=== PATIENT | female | born 1960 | race Caucasian/White ===

== ENCOUNTER → 2017-07-27 07:00 | Outpatient (CLI) | payer OTHER, SELFPAY ==
[2017-07-27 08:47] LABS: Alanine Aminotransferase 25 U/L (12-78); Albumin Level 4.9 gm/dL (3.4-5.0); Albumin/Globulin Ratio 1.4 (1.1-1.8); Alkaline Phosphatase 93 U/L (46-116); Anion Gap 14.8 mEq/L (5-15); Aspartate Amino Transferase 24 U/L (15-37); Bilirubin,Total 0.5 mg/dL (0.2-1.0); Blood Urea Nitrogen 21 mg/dL (7-18); Calcium 10.2 mg/dL (8.5-10.1); Carbon Dioxide 26 mmol/L (21.0-32.0); Chloride 105 mmol/L (98-107); Cholesterol 169 mg/dL (140-200); Creatinine,Serum 0.74 mg/dL (0.55-1.02); Estimated Glomerular Filt Rate 81 ml/min (>60); GFR (African American) 98 ML/MIN (>60); Globulin 3.4 gm/dl (1.3-3.2); Glucose 87 mg/dL (74-106); HDL Cholesterol 83 mg/dL (29-89); LDL Cholesterol 72 mg/dL (0-130); Potassium 4.8 mmoL/L (3.5-5.1); Sodium 141 mmol/L (136-145); Total Protein,Serum 8.3 gm/dL (6.4-8.2); Triglycerides 68 mg/dL (30-200); VLDL Cholesterol 14 mg/dL (0-40)
== END ==
PROVIDERS: Visit Provider Physician Assistant Medical
DX: I73.9 Peripheral vascular disease, unspecified (principal)
CPT/HCPCS: 36415; 80053; 80061

== ENCOUNTER → 2017-10-30 09:01 | Outpatient (CLI) | payer BC, SELFPAY ==
--- NOTE | 2017-10-30 09:11 | US_ITS ---
US abdomen limited History:Nausea, vomiting, diarrhea Ordering Physician:Amanda Zarco Patient Age: 57 years Comparison:None Findings: Pancreas:Unremarkable. No obvious mass or abnormal fluid collection. No ductal dilatation Liver:No focal liver lesions demonstrated. Homogeneous echogenicity. No intrahepatic biliary ductal dilatation evident Right Kidney:Unremarkable. Normal size and echogenicity. No hydronephrosis Gallbladder:No gallstones, gallbladder wall thickening, pericholecystic fluid, or biliary dilatation. Impression:Negative gallbladder/right upper quadrant ultrasound
== END ==
PROVIDERS: PCP Nurse Practitioner; Visit Provider Nurse Practitioner
DX: R19.7 Diarrhea, unspecified (principal); R11.2 Nausea with vomiting, unspecified
CPT/HCPCS: 76705

== ENCOUNTER 2018-01-10 09:30 | Outpatient (RCR) | payer BC, SELFPAY | END 2018-01-10 09:31 | disposition home or self-care (01) | LOC: PT 09:30 | PROVIDERS: PCP Nurse Practitioner; Visit Provider Physician Assistant | DX: M75.101 Unspecified rotator cuff tear or rupture of right shoulder, not specified as traumatic (principal) | CPT/HCPCS: 97010; 97014; 97016; 97110; 97140; 97163; G0283 ==

== ENCOUNTER → 2018-04-24 12:43 | Outpatient (POV) | payer BC, SELFPAY | DX: Z00.00 Encounter for general adult medical examination without abnormal findings (principal) ==

== ENCOUNTER 2018-06-05 09:30 | Outpatient (RCR) | payer BC, SELFPAY | END 2018-06-05 09:35 | disposition home or self-care (01) | LOC: PT 09:30 | PROVIDERS: Visit Provider Orthopaedic Surgery Sports Medicine | DX: M75.101 Unspecified rotator cuff tear or rupture of right shoulder, not specified as traumatic (principal) | CPT/HCPCS: 97010; 97014; 97016; 97110; 97163; 97164; G0283 ==

== ENCOUNTER → 2019-02-18 14:21 | Outpatient (POV) | payer BC, SELFPAY | PROVIDERS: Visit Provider Dermatology | DX: Z00.00 Encounter for general adult medical examination without abnormal findings (principal) ==

== ENCOUNTER → 2019-03-11 13:47 | Outpatient (POV) | payer BC, SELFPAY | PROVIDERS: Visit Provider Dermatology | DX: Z00.00 Encounter for general adult medical examination without abnormal findings (principal) ==

== ENCOUNTER → 2019-07-23 15:38 | Outpatient (POV) | payer BC, SELFPAY | DX: Z00.00 Encounter for general adult medical examination without abnormal findings (principal) ==

== ENCOUNTER 2020-01-27 08:00 | Outpatient (RCR) | payer BC, SELFPAY | END 2020-01-27 09:25 | disposition home or self-care (01) | LOC: PT 08:00 | PROVIDERS: Visit Provider Orthopaedic Surgery | DX: Z96.611 Presence of right artificial shoulder joint (principal); M25.511 Pain in right shoulder | CPT/HCPCS: 20560; 97010; 97014; 97016; 97110; 97140; 97163; 97164; G0283 ==

== ENCOUNTER → 2020-03-05 12:37 | Outpatient (CLI) | payer BC, SELFPAY ==
--- NOTE | 2020-03-05 12:37 | MM_ITS ---
PROCEDURE: MM DIG SCREENING MAMM BI W/CAD Digital Breast Tomosynthesis Included CLINICAL INDICATION: Routine Screening Mammogram There is no personal or family history of breast cancer. COMPARISON: MG JON SCREENING from 12/12/2013 MG SCREENING MAMMO DIGITAL W/ CAD from 10/07/2015 MG SCREENING MAMMO DIGITAL W/ CAD from 10/07/2015 TECHNIQUE: Standard CC and MLO images and 3D Tomosynthesis was obtained. R2 CAD reviewed. FINDINGS: The breasts are composed primarily of fat with minimal scattered fibroglandular densities in each breast. There is a biopsy clip deep to the nipple left breast. There is no suspicious lesion in either breast and no suspicious microcalcifications. IMPRESSION: Fatty type breast parenchyma with no suspicious lesions seen BI-RAD Category: 2 Benign Finding(s) FOLLOW-UP: 1YR 1 Year Follow-up (A letter has been sent to the patient regarding results of the study.) Dictated by: Dr. Peterson Hoffman MD 03/11/2020 08:26 Dr. Peterson Hoffman MD in [place] 03/11/2020 08:26
== END ==
PROVIDERS: PCP Nurse Practitioner; Visit Provider Obstetrics & Gynecology
DX: Z12.31 Encounter for screening mammogram for malignant neoplasm of breast (principal)
CPT/HCPCS: 77063; 77067

== ENCOUNTER → 2020-03-16 16:26 | Outpatient (CLI) | payer BC, SELFPAY ==
[2020-03-16 17:05] LABS: Basophils # 0.1 K/mm3 (0-0.2); Basophils % 0.9 % (0.1-2.0); Eosinophils # 0.1 K/mm3 (0.0-0.4); Eosinophils % 0.9 % (0.1-12.0); Hematocrit 45.5 % (37.0-47.0); Hemoglobin 15.8 g/dL (12.2-16.2); Lymphocytes % 19.7 % (10-50); Mean Corpuscular HGB Conc 34.6 g/dL (31.8-35.4); Mean Corpuscular Hemoglobin 32.8 pg (27.0-31.2); Mean Corpuscular Volume 94.7 fl (81-99); Mean Platelet Volume 8.3 fl (7.4-10.4); Monocytes # 0.6 K/mm3 (0.1-1.0); Monocytes % 3.9 % (1.7-9.3); Neutrophils # 11.5 K/mm3 (1.8-7.8); Neutrophils % 74.6 % (37.0-80.0); Platelet Count 343 K/mm3 (142-424); White Blood Count 15.4 K/mm3 (4.8-10.8)
[2020-03-16 17:07] LABS: MANUAL DIFFERENTIAL MANUAL DIFFERENTIAL (MANUAL DIFF)
[2020-03-16 17:22] LABS: Amphetamine/Metha Screen,Urine Negative ng/ml (<1000); Barbiturates Screen,Urine Negative ng/ml (<200)
[2020-03-16 17:23] LABS: Benzodiazepines Screen,Urine Negative ng/ml (<200)
[2020-03-16 17:24] LABS: Cannabinoid Screen,Urine Negative ng/ml (<50); Cocaine Screen,Urine Negative ng/ml (<300)
[2020-03-16 17:25] LABS: Methadone Screen,Urine Negative ng/ml (<300)
[2020-03-16 17:26] LABS: Opiate Screen,Urine Negative ng/ml (<300); Phencyclidine Screen,Urine Negative ng/ml (<25)
[2020-03-16 17:53] LABS: Lymphocytes % 25 % (10-50); Monocytes % 5 % (2-9); Neutrophils % 68 % (42-76); Total Cells Counted 100
[2020-03-16 17:54] LABS: Platelet Estimate Normal; RBC Morphology Normal
[2020-03-16 17:55] LABS: Chloride 102 mmol/L (98-107); Potassium 4.1 mmoL/L (3.5-5.1); Sodium 139 mmol/L (136-145)
[2020-03-16 17:58] LABS: Alanine Aminotransferase 19 U/L (12-78); Albumin Level 5.1 g/dl (3.5-5.0); Albumin/Globulin Ratio 1.6 (1.1-1.8); Alkaline Phosphatase 95 U/L (38-126); Anion Gap 16.1 mEq/L (5-15); Aspartate Amino Transferase 38 U/L (14-36); Bilirubin,Total 0.6 mg/dl (0.2-1.3); Blood Urea Nitrogen 16 mg/dl (7-17); Calcium 10.9 mg/dl (8.4-10.2); Carbon Dioxide 25 mmol/L (22.0-30.0); Estimated Glomerular Filt Rate 86 ml/min (>60); GFR (African American) 104 ML/MIN (>60); Globulin 3.2 g/dL (1.3-3.2); Glucose 79 mg/dl (74-100); Total Protein,Serum 8.3 g/dl (6.3-8.2)
[2020-03-16 18:55] LABS: Coronavirus 19 IgG Antibody Negative (Negative); Coronavirus 19 IgM Antibody Negative (Negative)
[2020-03-16 20:19] LABS: HCG Qualitative, Serum Negative (Negative)
== END ==
PROVIDERS: Visit Provider Obstetrics & Gynecology
DX: Z01.818 Encounter for other preprocedural examination (principal); A63.0 Anogenital (venereal) warts
CPT/HCPCS: 36415; 80053; 80305; 84703; 85007; 85025; 86328

== ENCOUNTER 2020-03-18 05:57 | Day surgery (SDC) | payer BC, SELFPAY ==
[2020-03-15 13:34] VITALS: BMI 23.1
[2020-03-18] VITALS (11 sets, daily range): BP systolic 110–133; BP diastolic 61–80; PULSE 64–94; RESP 13–18; TEMP 35.3–43; O2SAT 92–98
[2020-03-18 06:51] LABS: Microscopic, Urine URINE MICROSCOPIC (MICROSCOPIC)
[2020-03-18 06:53] LABS: Appearance,Urine CLEAR (Clear); Bilirubin,Urine Negative (Negative); Blood, Urine Negative (Negative); Color,Urine YELLOW (Yellow); Glucose,Urine (UA) Negative (Negative); Ketones,Urine Negative (Negative); Leukocyte Esterase,Urine Negative (Negative); Nitrate,Urine Negative (Negative); Protein,Urine Negative (Negative); Urobilinogen,Urine 0.2 EU/dl (0.2)
--- NOTE | 2020-03-18 07:11 | HMH.ANESCL ---
[facility] Anesthesia Checklist - Patient Identification Patient Identification: Arm Band, Verbal (Name & ) - Structural Data Admitted From: Home Planned Operative Procedure/s: CO2 laser genital condyloma Consent for Planned Operative Procedure(s) Verified: Yes Verified Documents: Surgical Consent, History and Physical - NPO Status Verified Time NPO: 19:00 - Chart Verification Results Verified: CBC, BMP - Additional verifications Patient : No Anesthesia Reactions: No - Airway Assessment C-Spine Mobility Assessed: Yes TMJ Mobility Assessed: Yes Dentition: Dentures-good fit (Upper denture, lower partial) - Neurological Assessment Level of Consciousness: Awake, Alert, Appropriate, Follows Commands Hx Seizures: No Numbness or tingling in extremities: No - Anesthesia Plan Anesthesia Risk discussed: Yes Anesthesia Plan: Verified ASA Class: III Anesthesia Type: General [facility] History I have reviewed the patient's past medical history: Yes Medical History: Reports:: Gastroesophageal Reflux Disease(GERD), Hyperlipidemia, Peripheral Artery Disease Denies:: Cancer, Diabetes Mellitus Type 1, Diabetes Mellitus Type 2, Internal Pacemaker, MRSA, Seizures *Have you ever received a pneumonia vaccine?: No *Have you received a flu vaccine this season?: Yes Other Medical History: Reports: Hypothyroidism Anesthesia experience/problems:: None Other Surgeries: Yes: Hysterectomy-Partial. No: Pacemaker Amputation: No Fractures: No - *Social History Last grade of school completed: High school graduate Smoking Status: Current every day smoker Tobacco Type: cigarettes # Packs/Day (cigarettes): 1 Alcohol Intake: never Substance Use Type: denies use *Occupational Status:: employed Housing: house Household Members: none *Travel in the last 8 weeks: None Family Hx:: Hyperlipidemia, Thyroid Disorder
[2020-03-18 07:39] LABS: RBC,Urine Occasional #/hpf (0-3)
--- NOTE | 2020-03-18 09:05 | HMH.ANESI ---
[facility] Anesthesia Record Part I Intake, IV Amount: 800 Estimated blood loss (mL): 5 Urine output (mL): 0 (NM) Blood Products used (#): none Blood Pressure: 117/65 SaO2: 92 Pulse Rate: 85 Respiratory Rate: 13 Temperature: 95.5 F Patient is:: Awake, Drowsy, Nasal O2, Stable Stable to PACU at:: 09:02
--- NOTE | 2020-03-18 10:09 | HMH.OPNOTE ---
Date of procedure: 03/18/20 Pre-op Diagnosis:: genital condyloma Post-op Diagnosis:: same Procedure performed:: C02 laser fulgaration of condyloma Surgeon:: Cece Cole MD [employer] SUPERVISOR:: Ernie Albarran Anesthesia: GETA Estimated blood loss (mL): 5 Operative findings:: extensive genital condyloma on labia minora, labia majora, perineum and roshan-rectal area Operative note:: The patient was taken to the OR and general anesthesia administered without complication. She was prepped and draped in lithotomy position. The genital region was prepped and draped with wet towels. The largest condyloma was excised with a scalpel after subcutaneous injection of lidocaine 2% with epinephrine. Numerous smaller lesions were fulgurated with the CO2 laser. The lesions arising directly from the rectal mucosa were not treated with the laser, and one lesion at the top of the left labia minora was only partially fulgurated because of it's close proximity to the clitoris. At the conclusion of the procedure, topical silvidine cream was applied to all areas of fulguration. She was taken out of lithotomy position, awakened from anesthesia and taken to recovery in stable condition. Condition: stable Disposition: PACU Specimens:: none Complications:: none
--- NOTE | 2020-03-18 11:37 | P.PN_ITS ---
[facility] Anesthesia Record Part II Discharge Time: 09:32 Destination: Surgical Day Care (OP Surgery) PACU nurse assessment reviewed?: Yes Patient Condition:: Good Anesthesia Complications:: None Swallowing reflex intact?: Yes Cyanosis?: No Blood Pressure: 110/80 Pulse Rate: 79 Temperature: 97.5 F Mental Status: Alert & Oriented Pain level:: 0 Nausea and/or vomitting:: None Intake, IV Amount: 0
== END 2020-03-18 10:05 | disposition home or self-care (01) ==
LOC: OR 05:58
PROVIDERS: PCP Nurse Practitioner; Visit Provider Obstetrics & Gynecology
PROC: (CPT 56515; principal; 2020-03-18 07:30)
DX: A63.0 Anogenital (venereal) warts (principal); Z90.710 Acquired absence of both cervix and uterus; Z72.0 Tobacco use; Z79.82 Long term (current) use of aspirin; Z79.899 Other long term (current) drug therapy
CPT/HCPCS: 56515; 81001; 96374; J2405

== ENCOUNTER → 2020-07-06 14:45 | Outpatient (CLI) | payer BC, SELFPAY ==
--- NOTE | 2020-07-06 14:50 | US_ITS ---
PROCEDURE: US ABDOMEN LIMITED CLINICAL INDICATION: LUMP IN ABDOMEN Palpable soft tissue nodule in the left lateral abdominal region. COMPARISON: US [facility] US abdomen limited from 10/30/2017 FINDINGS: There is an oval 4 x 1.3 by 1.7 cm isoechoic mass in the left lateral abdominal region corresponding to the palpable abnormality. This is homogeneous isoechoic and is consistent with a lipoma. IMPRESSION: Palpable abnormality in the left lateral abdominal region is felt to represent a lipoma Dictated by: Rogerio Hicks MD 07/06/2020 17:03 Rogerio Hicks MD in [place] 07/06/2020 17:03
== END ==
PROVIDERS: PCP Nurse Practitioner; Visit Provider Nurse Practitioner
DX: R19.00 Intra-abdominal and pelvic swelling, mass and lump, unspecified site (principal)
CPT/HCPCS: 76705

== ENCOUNTER → 2020-07-21 11:22 | Outpatient (CLI) | payer BC, SELFPAY ==
--- NOTE | 2020-07-21 11:55 | ECG_ITS ---
APPROVED REPORT Exam: Resting ECG HR:63 bpm ECG Measurements Heart Rate 63 AXES GA 144 P 78 QRSd 78 QRS 60 QT 438 T 65 QTc 448 Conclusion Normal sinus rhythm Normal ECG Electronically signed by : Stephen Vuong, 07/22/2020 08:39:20
[2020-07-21 12:16] LABS: Basophils # 0.1 K/mm3 (0-0.2); Eosinophils # 0.2 K/mm3 (0.0-0.4); Eosinophils % 2.2 % (0.1-12.0); Hematocrit 44.3 % (37.0-47.0); Hemoglobin 14.4 g/dL (12.2-16.2); Lymphocytes # 2.9 K/mm3 (0.7-4.5); Lymphocytes % 26.8 % (10-50); Mean Corpuscular HGB Conc 32.4 g/dL (31.8-35.4); Mean Corpuscular Hemoglobin 32.2 pg (27.0-31.2); Mean Corpuscular Volume 99.2 fl (81-99); Mean Platelet Volume 8.1 fl (7.4-10.4); Monocytes # 0.4 K/mm3 (0.1-1.0); Monocytes % 3.7 % (1.7-9.3); Neutrophils % 66.2 % (37.0-80.0); Platelet Count 324 K/mm3 (142-424); Red Blood Count 4.47 M/mm3 (4.20-5.40); Red Cell Distribution Width 13.2 % (11.5-17.5); White Blood Count 10.6 K/mm3 (4.8-10.8)
[2020-07-21 12:30] LABS: Anion Gap 12.1 mEq/L (5-15); Blood Urea Nitrogen 29 mg/dl (7-17); Calcium 10.5 mg/dl (8.4-10.2); Carbon Dioxide 24 mmol/L (22.0-30.0); Chloride 107 mmol/L (98-107); Estimated Glomerular Filt Rate 102 ml/min (>60); GFR (African American) 123 ML/MIN (>60); Glucose 75 mg/dl (74-100); Potassium 5.1 mmoL/L (3.5-5.1); Sodium 138 mmol/L (136-145)
[2020-07-21 13:22] LABS: Coronavirus 19 IgG Antibody Negative (Negative); Coronavirus 19 IgM Antibody Negative (Negative)
== END ==
PROVIDERS: Visit Provider Surgery
DX: Z01.818 Encounter for other preprocedural examination (principal); Z20.822 Contact with and (suspected) exposure to COVID-19; A63.0 Anogenital (venereal) warts
CPT/HCPCS: 36415; 80048; 85025; 86328; 93005

== ENCOUNTER 2020-07-23 09:03 | Day surgery (SDC) | payer BC, SELFPAY ==
[2020-07-21 12:05] VITALS: BMI 23.1
[2020-07-23] VITALS (10 sets, daily range): BP systolic 73–151; BP diastolic 40–74; PULSE 64–97; RESP 16–18; TEMP 36.2–36.8; O2SAT 91–97
--- NOTE | 2020-07-23 10:42 | P.PN_ITS ---
[facility] Anesthesia Checklist - Patient Identification Patient Identification: Arm Band - Structural Data Admitted From: Home Planned Operative Procedure/s: Excision perianal lesions Consent for Planned Operative Procedure(s) Verified: Yes - Additional verifications Anesthesia Reactions: No Hx Blood Transfusions: No Blood Transfusion Reaction: No - Airway Assessment C-Spine Mobility Assessed: Yes TMJ Mobility Assessed: Yes Dentition: Poor Dentition - Neurological Assessment Level of Consciousness: Awake Hx Seizures: No Numbness or tingling in extremities: No - Anesthesia Plan Anesthesia Risk discussed: Yes Anesthesia Plan: Verified ASA Class: II Anesthesia Type: General [facility] History Medical History: Reports:: Gastroesophageal Reflux Disease(GERD), Hyperlipidemia, Peripheral Artery Disease Denies:: Cancer, Diabetes Mellitus Type 1, Diabetes Mellitus Type 2, Internal Pacemaker, MRSA, Seizures *Have you ever received a pneumonia vaccine?: Yes *Have you received a flu vaccine this season?: Yes Other Medical History: Reports: Hypothyroidism. Denies: Blood Transfusion Reaction Anesthesia experience/problems:: None Laterality Cases: Bilateral: Arthroscopy Shoulder Other Surgeries: Yes: Hysterectomy-Partial. No: Pacemaker Amputation: No Fractures: No - *Social History Last grade of school completed: High school graduate Smoking Status: Current every day smoker Tobacco Type: cigarettes # Packs/Day (cigarettes): 1 Alcohol Intake: never Substance Use Type: denies use *Occupational Status:: employed Housing: apartment Household Members: none *Travel in the last 8 weeks: None Family Hx:: Hyperlipidemia, Thyroid Disorder
--- NOTE | 2020-07-23 10:56 | HMH.OPNOTE ---
Date of procedure: 07/23/20 Pre-op Diagnosis:: Perianal/perineal condyloma Post-op Diagnosis:: Same Procedure performed:: Excision of anterior perianal/perineal condyloma Surgeon:: Melchor Boone MD Anesthesia: LMA Estimated blood loss (mL): 5 Operative findings:: Firm lobulated lesion along the anterior perianal margin/perineum Operative note:: After informed consent was obtained the patient was taken to the operating room and placed in the supine position. General anesthesia with laryngeal mask airway was achieved. She was then transferred to a modified lithotomy position. The perianal region was prepped and draped in a sterile fashion. After infiltration local anesthetic an incision was made around the margin of the lesion utilizing electrocautery. Electrocautery was utilized to transect the deeper subcutaneous tissue. The lesion was excised in toto and passed off for pathologic evaluation. Electrocautery was utilized to achieve hemostasis. Skin/mucosal margins not reapproximated secondary to concerns for stricture. Dressings were applied and the patient was transferred recovery in stable condition after removal of her laryngeal mask airway. Condition: stable Disposition: PACU Specimens:: Anterior perianal/perineal condyloma's Complications:: No immediate
--- NOTE | 2020-07-23 11:00 | HMH.ANESI ---
[facility] Anesthesia Record Part I Intake, IV Amount: 200 Estimated blood loss (mL): 10 Urine output (mL): 0 Blood Pressure: 73/40 SaO2: 94 Pulse Rate: 64 Respiratory Rate: 18 Temperature: 97.1 F Patient is:: Drowsy, Stable Stable to PACU at:: 10:58
--- NOTE | 2020-07-23 12:40 | P.PN_ITS ---
[facility] Anesthesia Record Part II Discharge Time: 11:28 Destination: Surgical Day Care (OP Surgery) PACU nurse assessment reviewed?: Yes Patient Condition:: Good Anesthesia Complications:: None Swallowing reflex intact?: Yes Cyanosis?: No Blood Pressure: 111/58 Pulse Rate: 97 Temperature: 97.2 F Mental Status: Alert & Oriented Pain level:: 0 Nausea and/or vomitting:: None Intake, IV Amount: 800
== END 2020-07-23 12:00 | disposition home or self-care (01) ==
LOC: OR 09:06
PROVIDERS: PCP Nurse Practitioner; Visit Provider Surgery
PROC: (CPT 46910; principal; 2020-07-23 10:30)
DX: A63.0 Anogenital (venereal) warts (principal); I73.9 Peripheral vascular disease, unspecified; E78.5 Hyperlipidemia, unspecified; K21.9 Gastro-esophageal reflux disease without esophagitis; E03.9 Hypothyroidism, unspecified; Z87.39 Personal history of other diseases of the musculoskeletal system and connective tissue; Z72.0 Tobacco use; Z90.710 Acquired absence of both cervix and uterus; Z79.82 Long term (current) use of aspirin; Z79.899 Other long term (current) drug therapy
CPT/HCPCS: 46910; 96374; J2405

== ENCOUNTER → 2020-08-24 09:44 | Outpatient (CLI) | payer BC, SELFPAY ==
[2020-08-24 11:06] LABS: Blood Urea Nitrogen 23 mg/dl (7-17); Estimated Glomerular Filt Rate 102 ml/min (>60); GFR (African American) 123 ML/MIN (>60)
== END ==
PROVIDERS: Visit Provider Surgery
DX: Z01.812 Encounter for preprocedural laboratory examination (principal)
CPT/HCPCS: 36415; 82565; 84520

== ENCOUNTER → 2020-09-01 12:33 | Outpatient (CLI) | payer BC, SELFPAY ==
--- NOTE | 2020-09-01 12:34 | CT_ITS ---
PROCEDURE: CT PELVIS W CON CLINICAL INDICATION: Carcinoma Recent squamous cell carcinoma diagnosis 07/23/20 Hx of places being removed Excision of anterior perianal/perineal condyloma COMPARISON: No exams were available for comparison TECHNIQUE: Axial images obtained with sagittal and coronal reformats. All CT scans at the facility use one or more dose reduction, viz: automated exposure control, ma/kV adjustment per patient size (including targeted exams where dose is matched to indication, i.e. head), or iterative reconstruction technique. FINDINGS: There is a mild amount of retained colonic feces. A large cystic mass is present in the left paracentral aspect of the pelvis measuring 7 x 7 x 6.7 cm. No obvious internal septations. This lies along the posterior and left aspect of the urinary bladder causing some compression upon the full bladder. There has been a prior hysterectomy.. This mass is compressing upon the distal ureter and somewhat displacing the sigmoid colon posteriorly. The mass does extend inferiorly to the pelvic floor and is slightly displacing the rectum toward the right. No adenopathy. There is mild thickening of the anal verge. This however is nonspecific and may be due to nondistention. The ischial rectal fossa has an unremarkable appearance. No acute bony anomaly. No blastic lesions or lytic lesions apparent. There is mild diffuse vascular calcification. IMPRESSION: 1. Status post hysterectomy. There is a 7 cm left paracentral cystic pelvic mass as described above. Suggest ultrasound to further evaluate. 2. Minimal thickening of the anal verge possibly due to nondistention. Correlation with physical exam suggested. No adenopathy or obvious rectal mass apparent. Dictated by: Rogerio Hicks MD 09/03/2020 09:48 Rogerio Hicks MD in [place] 09/03/2020 09:48
== END ==
PROVIDERS: PCP Nurse Practitioner; Visit Provider Surgery
DX: C44.92 Squamous cell carcinoma of skin, unspecified (principal)
CPT/HCPCS: 72193; Q9967

== ENCOUNTER → 2020-09-01 14:17 | Outpatient (POV) | payer BC, SELFPAY | DX: Z00.00 Encounter for general adult medical examination without abnormal findings (principal) ==

== ENCOUNTER → 2020-09-08 17:09 | Outpatient (CLI) | payer BC, SELFPAY | PROVIDERS: Visit Provider Surgery | DX: Z20.822 Contact with and (suspected) exposure to COVID-19 (principal) ==

== ENCOUNTER → 2020-09-09 11:28 | Outpatient (CLI) | payer BC, SELFPAY ==
[2020-09-09 13:20] LABS: Coronavirus 19 IgG Antibody Positive (Negative); Coronavirus 19 IgM Antibody Negative (Negative)
== END ==
PROVIDERS: Visit Provider Surgery
DX: Z01.812 Encounter for preprocedural laboratory examination (principal); Z20.822 Contact with and (suspected) exposure to COVID-19; C44.92 Squamous cell carcinoma of skin, unspecified
CPT/HCPCS: 36415; 86328

== ENCOUNTER 2020-09-10 05:54 | Day surgery (SDC) | payer BC, SELFPAY ==
[2020-09-09 15:41] VITALS: BMI 23.9
[2020-09-10] VITALS (9 sets, daily range): BP systolic 113–126; BP diastolic 65–72; PULSE 66–105; RESP 18–22; TEMP 36.1–37.2; O2SAT 90–99
--- NOTE | 2020-09-10 06:56 | HMH.ANESCL ---
[facility] Anesthesia Checklist - Patient Identification Patient Identification: Arm Band - Structural Data Admitted From: Home Planned Operative Procedure/s: Excision perianal lesion Consent for Planned Operative Procedure(s) Verified: Yes - NPO Status Verified Time NPO: 00:00 - Additional verifications Anesthesia Reactions: No Hx Blood Transfusions: No Blood Transfusion Reaction: No - Airway Assessment C-Spine Mobility Assessed: Yes TMJ Mobility Assessed: Yes Dentition: Poor Dentition (few teeth remaining, upper dentures removed) - Neurological Assessment Level of Consciousness: Awake, Alert Hx Seizures: No Numbness or tingling in extremities: No - Anesthesia Plan Anesthesia Risk discussed: Yes Anesthesia Plan: Verified ASA Class: II Anesthesia Type: General [facility] History I have reviewed the patient's past medical history: Yes Medical History: Reports:: Gastroesophageal Reflux Disease(GERD), Hyperlipidemia, Peripheral Artery Disease Denies:: Cancer, Diabetes Mellitus Type 1, Diabetes Mellitus Type 2, Internal Pacemaker, MRSA, Seizures *Have you ever received a pneumonia vaccine?: No *Have you received a flu vaccine this season?: Yes Other Medical History: Reports: Hypothyroidism. Denies: Blood Transfusion Reaction Anesthesia experience/problems:: None Laterality Cases: Bilateral: Arthroscopy Shoulder Other Surgeries: Yes: Hysterectomy-Partial, Other. No: Pacemaker Amputation: No Fractures: No - *Social History Last grade of school completed: High school graduate Smoking Status: Current every day smoker Tobacco Type: cigarettes # Packs/Day (cigarettes): 1 Alcohol Intake: never Substance Use Type: denies use *Occupational Status:: employed Housing: house Household Members: none *Travel in the last 8 weeks: None Family Hx:: Hyperlipidemia, Thyroid Disorder
--- NOTE | 2020-09-10 07:42 | HMH.OPNOTE ---
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 General anesthesia with laryngeal mask airway was achieved. She was transferred to a modified lithotomy position. Her perineal/perianal region was prepped and draped in a sterile fashion. After infiltration with local anesthetic the remaining scar tissue from prior excision site was sharply excised with scalpel. No obvious abnormalities consistent with persistent carcinoma with noted on examination. The specimen was passed off for pathologic evaluation. Electrocautery was utilized to achieve hemostasis. Dressings were applied and the patient was transferred to recovery in stable condition after removal of her laryngeal mask airway. Condition: stable Disposition: PACU Specimens:: Reexcision perineal/perianal squamous cell carcinoma Complications:: No immediate
--- NOTE | 2020-09-10 07:51 | P.PN_ITS ---
[facility] Anesthesia Record Part I Intake, IV Amount: 600 Estimated blood loss (mL): 0 Urine output (mL): 0 Blood Pressure: 126/72 SaO2: 97 Pulse Rate: 102 Respiratory Rate: 22 Temperature: 99 F Patient is:: Awake Stable to PACU at:: 07:59
--- NOTE | 2020-09-13 08:30 | P.PN_ITS ---
[facility] Anesthesia Record Part II Discharge Time: 08:19 Destination: Surgical Day Care (OP Surgery) PACU nurse assessment reviewed?: Yes Patient Condition:: Good Anesthesia Complications:: None Swallowing reflex intact?: Yes Cyanosis?: No Blood Pressure: 122/65 Pulse Rate: 96 Temperature: 97.5 F Mental Status: Alert & Oriented Pain level:: 0 Nausea and/or vomitting:: None Intake, IV Amount: 0
[2020-09-13 08:31] VITALS: BP 122/65; PULSE 96; TEMP 36.4
== END 2020-09-10 08:53 | disposition home or self-care (01) ==
PROVIDERS: PCP Nurse Practitioner; Visit Provider Surgery
PROC: (CPT 11402; principal; 2020-09-10 07:30)
DX: D04.5 Carcinoma in situ of skin of trunk (principal); K21.9 Gastro-esophageal reflux disease without esophagitis; E78.5 Hyperlipidemia, unspecified; I73.9 Peripheral vascular disease, unspecified; E03.9 Hypothyroidism, unspecified; Z72.0 Tobacco use; Z79.82 Long term (current) use of aspirin; Z79.899 Other long term (current) drug therapy
CPT/HCPCS: 11402

== ENCOUNTER → 2020-09-20 13:09 | Outpatient (CLI) | payer BC, SELFPAY ==
--- NOTE | 2020-09-20 13:09 | US_ITS ---
PROCEDURE: US TRANSVAGINAL CLINICAL INDICATION: pelvic mass COMPARISON: CT CT PELVIS W CON from 09/01/2020 FINDINGS: The uterus is surgically absent. LEFT OVARY: 1gli6hjq6.7cm with a volume of 201.6ml. Left adnexal anechoic lesion is noted measuring 6.7 x 7.6 centimeters, likely represents a cyst. Right adnexa is unremarkable. The right ovary is not identified. IMPRESSION: Left ovarian cyst measuring up to 7.6 centimeters. Hysterectomy noted. Dictated by: Zully Tee 09/20/2020 16:09 Zully Tee in [place] 09/20/2020 16:09
== END ==
PROVIDERS: PCP Nurse Practitioner; Visit Provider Surgery
DX: R19.00 Intra-abdominal and pelvic swelling, mass and lump, unspecified site (principal)
CPT/HCPCS: 76830

== ENCOUNTER → 2020-09-24 12:13 | Outpatient (CLI) | payer BC, SELFPAY ==
[2020-09-26 10:42] LABS: CA 19-9 5 U/mL (0-35)
== END ==
PROVIDERS: Visit Provider Obstetrics & Gynecology
DX: N94.89 Other specified conditions associated with female genital organs and menstrual cycle (principal); R19.09 Other intra-abdominal and pelvic swelling, mass and lump
CPT/HCPCS: 36415; 86316

== ENCOUNTER → 2020-10-13 16:44 | Outpatient (CLI) | payer BC, SELFPAY ==
[2020-10-15 08:15] LABS: CEA 3.3 ng/mL (0.0-4.7); Cancer Antigen (CA) 125 18.6 U/mL (0.0-38.1)
== END ==
PROVIDERS: Visit Provider Obstetrics & Gynecology
DX: N94.89 Other specified conditions associated with female genital organs and menstrual cycle (principal)
CPT/HCPCS: 82378; 86316

== ENCOUNTER → 2021-03-07 15:44 | Outpatient (CLI) | payer BC, SELFPAY ==
--- NOTE | 2021-03-07 15:45 | MM_ITS ---
PROCEDURE: MM DIG SCREENING MAMM BI W/CAD Digital Breast Tomosynthesis Included CLINICAL INDICATION: screening There is no personal or family history of breast cancer. COMPARISON: MG SCREENING MAMMO DIGITAL W/ CAD from 10/07/2015 MG SCREENING MAMMO DIGITAL W/ CAD from 10/07/2015 MG MM DIG SCREENING MAMM BI W/CAD from 03/05/2020 TECHNIQUE: Standard CC and MLO images and 3D Tomosynthesis was obtained. R2 CAD reviewed. FINDINGS: Scattered fibroglandular densities are seen throughout both breasts. There is a biopsy clip just deep to the nipple left breast. There is a tiny benign-appearing nodular density upper-outer quadrant left breast. There is no suspicious lesion in either breast and no suspicious microcalcifications. IMPRESSION: Fibrofatty parenchyma with no suspicious lesions seen BI-RAD Category: 2 Benign Finding(s) FOLLOW-UP: 1YR 1 Year Follow-up (A letter has been sent to the patient regarding results of the study.) Dictated by: Dr. Peterson Hoffman MD 03/11/2021 10:23 Dr. Peterson Hoffman MD in [place] 03/11/2021 10:23
== END ==
PROVIDERS: PCP Nurse Practitioner Family; Visit Provider Obstetrics & Gynecology
DX: Z12.31 Encounter for screening mammogram for malignant neoplasm of breast (principal)
CPT/HCPCS: 77063; 77067

== ENCOUNTER → 2021-04-26 16:46 | Outpatient (CLI) | payer BC, SELFPAY | PROVIDERS: Visit Provider Surgery | DX: Z01.812 Encounter for preprocedural laboratory examination (principal); Z11.52 Encounter for screening for COVID-19; Z12.11 Encounter for screening for malignant neoplasm of colon | CPT/HCPCS: C9803; U0003; U0005 ==

== ENCOUNTER 2021-04-28 10:10 | Day surgery (SDC) | payer BC, SELFPAY ==
[2021-04-26 11:22] VITALS: BMI 20.1
[2021-04-28 10:23] VITALS: BP 124/80; PULSE 68; RESP 18; TEMP 37; O2SAT 99
[2021-04-28 10:37] VITALS: O2SAT 99
[2021-04-28 11:15] VITALS: BP 106/64; PULSE 67; RESP 14; TEMP 36.4; O2SAT 97
--- NOTE | 2021-04-28 11:15 | P.PCN_ITS ---
- Procedure: Date: 04/28/21 Patient Date of :: 1960 Procedure Performed:: Colonoscopy Indications:: Screening History of perianal squamous cell carcinoma Performing Provider:: Melchor Boone MD Referring Provider:: . Sedation:: Monitored anesthesia care Procedure:: After informed consent was obtained the patient was taken to the endoscopy suit e. Sedation ensued after the patient was transferred to the left lateral decubitus position. Pulse, blood pressure, and oxygen saturation were monitored throughout the procedure. Digital rectal exam revealed no significant abnormality. The colonoscope was placed in position. The entire colon was evaluated. The colonoscope was carefully removed and the patient was transferred to recovery in stable condition. Please see findings and specimens below for detail. Findings:: Bowel preparation fair to moderate Scattered diverticulosis Profound tortuosity limiting visualization Specimens:: None Recommendations:: Barium enema ordered secondary to profound tortuosity. Follow-up colonoscopy pending results of barium enema but likely be around 2-3 years secondary to limitations in visualization. If no abnormality is noted on barium enema and on repeat colonoscopy, timing of future colonoscopies will likely be extended. Complications:: No immediate Estimated blood obtained (mL): 0 Comment:: The patient was last seen in September 2020 in follow-up status post excision of perianal squamous cell carcinoma. 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 The patient was scheduled for follow-up with regard to these findings; however, she did not maintain her appointment.
[2021-04-28 11:25] VITALS: BP 102/60; PULSE 73; RESP 18; O2SAT 98
[2021-04-28 11:35] VITALS: BP 119/66; PULSE 65; RESP 16; O2SAT 99
[2021-04-28 11:42] VITALS: BP 111/76; PULSE 70; RESP 16; O2SAT 98
--- NOTE | 2021-04-28 11:58 | HMH.ANESCL ---
[facility] Anesthesia Checklist - Structural Data Admitted From: Home Planned Operative Procedure/s: colonoscopy Consent for Planned Operative Procedure(s) Verified: Yes - Additional verifications Anesthesia Reactions: No Hx Blood Transfusions: No Blood Transfusion Reaction: No - Airway Assessment C-Spine Mobility Assessed: Yes TMJ Mobility Assessed: Yes Dentition: Dentures-good fit - Neurological Assessment Level of Consciousness: Awake, Alert, Appropriate - Anesthesia Plan Anesthesia Risk discussed: Yes Anesthesia Plan: Verified ASA Class: II Anesthesia Type: MAC [facility] History I have reviewed the patient's past medical history: Yes Medical History: Reports:: Gastroesophageal Reflux Disease(GERD), Hyperlipidemia, Hypertension, Peripheral Artery Disease Denies:: Cancer, Diabetes Mellitus Type 1, Diabetes Mellitus Type 2, Internal Pacemaker, MRSA, Seizures *Have you ever received a pneumonia vaccine?: No *Have you received a flu vaccine this season?: No Other Medical History: Reports: Hypothyroidism. Denies: Blood Transfusion Reaction Anesthesia experience/problems:: none Laterality Cases: Bilateral: Arthroscopy Shoulder Other Surgeries: Yes: Colonoscopy, Coronary Stent (bilateral calf), Hysterectomy-Partial, Skin Cancer Excision, Other. No: Pacemaker Amputation: No Fractures: No - *Social History Smoking Status: Current every day smoker Tobacco Type: cigarettes # Packs/Day (cigarettes): 1 Alcohol Intake: never Substance Use Type: denies use *Occupational Status:: employed Housing: house Household Members: none *Travel in the last 8 weeks: None Family Hx:: Hyperlipidemia, Thyroid Disorder
--- NOTE | 2021-04-28 12:18 | SUR.PHASEII ---
1125 - Spoke w/ radiology, made aware of barium enema. 1130 - Recieved call from RT Prabhu that barium not available in house. Dr. Boone made aware. Rad to contact patient to schedule barium enema outpatient when supplies available. Contact info given to RT Prabhu. Pt given DC education and made aware that RAD would be contacting her to schedule barium enema.
== END 2021-04-28 11:42 | disposition home or self-care (01) ==
LOC: OUTP 10:11
PROVIDERS: PCP Nurse Practitioner Family; Visit Provider Surgery
PROC: 0DJD8ZZ Inspection of Lower Intestinal Tract, Via Natural or Artificial Opening Endoscopic (ICD-10-PCS; CPT 45378; principal; 2021-04-28 11:30)
DX: Z12.11 Encounter for screening for malignant neoplasm of colon (principal); Z85.048 Personal history of other malignant neoplasm of rectum, rectosigmoid junction, and anus; K57.32 Diverticulitis of large intestine without perforation or abscess without bleeding; K56.2 Volvulus
CPT/HCPCS: 45378

== ENCOUNTER → 2021-04-29 12:40 | Outpatient (CLI) | payer BC, SELFPAY ==
--- NOTE | 2021-04-29 13:01 | FL_ITS ---
PROCEDURE: FL BARIUM ENEMA CLINICAL INDICATION: unable to do colonoscopy COMPARISON: No exams were available for comparison FINDINGS: Fluoroscopy time: 4 minutes and 43 seconds. Partner [employer] Intern exam shows bilateral iliac artery stents. Vascular calcification noted. The colon is visualized from rectum to cecum. No annular constricting lesions or polypoid filling defects are apparent. There is diverticulosis of the sigmoid colon. There was some mild spasm within the sigmoid colon which resolved. IMPRESSION: Colonic diverticulosis otherwise negative Dictated by: Rogerio Hicks MD 04/29/2021 15:17 Rogerio Hicks MD in [place] 04/29/2021 15:17
== END ==
PROVIDERS: PCP Nurse Practitioner Family; Visit Provider Surgery
DX: D64.9 Anemia, unspecified (principal)
CPT/HCPCS: 74270

== ENCOUNTER → 2021-06-07 16:53 | Outpatient (CLI) | payer BC, SELFPAY ==
--- NOTE | 2021-06-07 17:11 | ECG_ITS ---
APPROVED REPORT Exam: Resting ECG HR:69 bpm ECG Measurements Heart Rate 69 AXES AR 144 P 83 QRSd 83 QRS 63 QT 395 T 76 QTc 413 Conclusion SINUS RHYTHM Atrial abnormality BORDERLINE ECG UNCONFIRMED REPORT Electronically signed by : Stephen Vuong MD 06/13/2021 17:36:54
[2021-06-07 17:45] LABS: Anion Gap 12.2 mEq/L (5-15); Blood Urea Nitrogen 22 mg/dl (7-17); Calcium 10.5 mg/dl (8.4-10.2); Carbon Dioxide 25 mmol/L (22.0-30.0); Chloride 104 mmol/L (98-107); Estimated Glomerular Filt Rate 85 ml/min (>60); GFR (African American) 103 ML/MIN (>60); Glucose 80 mg/dl (74-100); Potassium 4.2 mmoL/L (3.5-5.1); Sodium 137 mmol/L (136-145)
[2021-06-07 17:50] LABS: Basophils # 0.3 K/mm3 (0-0.2); Basophils % 3.7 % (0.1-2.0); Eosinophils # 0.2 K/mm3 (0.0-0.4); Eosinophils % 2.5 % (0.1-12.0); Hematocrit 43.9 % (37.0-47.0); Hemoglobin 14.3 g/dL (12.2-16.2); Lymphocytes # 2.7 K/mm3 (0.7-4.5); Lymphocytes % 28.9 % (10-50); Mean Corpuscular HGB Conc 32.7 g/dL (31.8-35.4); Mean Corpuscular Hemoglobin 32.6 pg (27.0-31.2); Mean Corpuscular Volume 99.7 fl (81-99); Mean Platelet Volume 9.5 fl (7.4-10.4); Monocytes # 0.4 K/mm3 (0.1-1.0); Monocytes % 4.7 % (1.7-9.3); Neutrophils # 5.6 K/mm3 (1.8-7.8); Neutrophils % 60.3 % (37.0-80.0); Platelet Count 322 K/mm3 (142-424); Red Cell Distribution Width 13.1 % (11.5-17.5); White Blood Count 9.3 K/mm3 (4.8-10.8)
== END ==
PROVIDERS: Visit Provider Surgery
DX: Z01.812 Encounter for preprocedural laboratory examination (principal); Z11.52 Encounter for screening for COVID-19; C44.92 Squamous cell carcinoma of skin, unspecified
CPT/HCPCS: 36415; 80048; 85025; 93005; C9803; U0003; U0005

== ENCOUNTER 2021-06-09 05:54 | Day surgery (SDC) | payer BC, SELFPAY ==
[2021-06-09] VITALS (11 sets, daily range): BP systolic 101–123; BP diastolic 53–65; PULSE 71–681; RESP 14–18; TEMP 36.2–36.9; O2SAT 94–99; BMI 21.0
--- NOTE | 2021-06-09 06:50 | P.PN_ITS ---
[facility] Anesthesia Checklist - Structural Data Admitted From: Home Planned Operative Procedure/s: perirectal abcess Consent for Planned Operative Procedure(s) Verified: Yes - Additional verifications Anesthesia Reactions: No Hx Blood Transfusions: No Blood Transfusion Reaction: No - Airway Assessment C-Spine Mobility Assessed: Yes TMJ Mobility Assessed: Yes Dentition: Edentulous - Neurological Assessment Level of Consciousness: Awake, Alert, Appropriate - Anesthesia Plan Anesthesia Risk discussed: Yes ASA Class: II Anesthesia Type: General [facility] History I have reviewed the patient's past medical history: Yes Medical History: Reports:: Gastroesophageal Reflux Disease(GERD), Hyperlipidemia, Hypertension, Peripheral Artery Disease Denies:: Cancer, Diabetes Mellitus Type 1, Diabetes Mellitus Type 2, Internal Pacemaker, MRSA, Seizures *Have you ever received a pneumonia vaccine?: No *Have you received a flu vaccine this season?: Yes Other Medical History: Reports: Hypothyroidism. Denies: Blood Transfusion Reaction Anesthesia experience/problems:: none Laterality Cases: Bilateral: Arthroscopy Shoulder Other Surgeries: Yes: Colonoscopy, Coronary Stent (bilateral calf), Hysterectomy-Partial, Skin Cancer Excision, Other. No: Pacemaker Amputation: No Fractures: No - *Social History Last grade of school completed: High school graduate Smoking Status: Current every day smoker Tobacco Type: cigarettes # Packs/Day (cigarettes): 1 Alcohol Intake: never Substance Use Type: denies use *Occupational Status:: employed Housing: house Household Members: none *Travel in the last 8 weeks: None Family Hx:: Hyperlipidemia, Thyroid Disorder
--- NOTE | 2021-06-09 07:42 | P.OP_ITS ---
Date of procedure: 06/09/21 Pre-op Diagnosis:: Perianal/perineal condyloma and squamous cell carcinoma Post-op Diagnosis:: Same Procedure performed:: Anal/perianal examination under anesthesia Biopsy of perianal/perineal squamous cell carcinoma prior excision margin Surgeon:: Melchor Boone MD [employer] MACHINE OPERATOR:: Leon Oswald Anesthesia: LMA Estimated blood loss (mL): 5 Clinical Note:: This is a 61-year-old female status post prior excision of perianal/perineal squamous cell carcinoma. Squamous cell carcinoma in situ at the margin was noted at prior excision site. Operative findings:: Prior scar noted. No definitive focus of carcinoma. No additional condylomatous changes. Operative note:: After informed consent was obtained the patient was taken to the operating room and placed in the supine position. General anesthesia with laryngeal mask airway was achieved. She was transferred to a modified lithotomy position. Digital rectal exam revealed no significant abnormality. Inspection of the perianal region and anal canal revealed no significant abnormality (no sign of recurrent condyloma or definitive carcinoma). Some discoloration along both medial buttock/perianal regions was noted. A biopsy of the right and left medial buttock/perianal region was completed after infiltration local anesthetic. The scar (status post prior excision) along the peroneal ridge was also noted. The right lateral and left lateral margins of the scar were excised separately (excisional biopsy) for pathologic evaluation. Electrocautery was utilized to achieve hemostasis of all 4 biopsy/excision sites. Dressings were placed and the patient was transferred to recovery in stable condition. Condition: stable Disposition: PACU Specimens:: Right medial buttock/perianal biopsy Left medial buttock/perianal biopsy Right lateral perineal scar biopsy Left lateral perineal scar biopsy Complications:: No immediate
--- NOTE | 2021-06-09 07:54 | P.PN_ITS ---
[facility] Anesthesia Record Part I Intake, IV Amount: 400 Estimated blood loss (mL): 5 Urine output (mL): 0 Blood Pressure: 101/54 SaO2: 96 Pulse Rate: 76 Respiratory Rate: 16 Temperature: 98.4 F Patient is:: Drowsy, Stable Stable to PACU at:: 07:50
--- NOTE | 2021-06-09 11:54 | HMH.ANESII ---
[facility] Anesthesia Record Part II Discharge Time: 08:20 Destination: Surgical Day Care (OP Surgery) PACU nurse assessment reviewed?: Yes Patient Condition:: Good Anesthesia Complications:: None Swallowing reflex intact?: Yes Cyanosis?: No Blood Pressure: 118/63 Pulse Rate: 71 Temperature: 97.8 F Mental Status: Alert & Oriented Pain level:: 0 Nausea and/or vomitting:: None Intake, IV Amount: 0
== END 2021-06-09 08:58 | disposition home or self-care (01) ==
LOC: OR 05:55
PROVIDERS: PCP Nurse Practitioner Family; Visit Provider Surgery
PROC: (CPT 11106; principal; 2021-06-09 07:30)
DX: C44.520 Squamous cell carcinoma of anal skin (principal); A63.0 Anogenital (venereal) warts; K21.9 Gastro-esophageal reflux disease without esophagitis; E78.5 Hyperlipidemia, unspecified; I10 Essential (primary) hypertension; I73.9 Peripheral vascular disease, unspecified; E03.9 Hypothyroidism, unspecified; Z95.5 Presence of coronary angioplasty implant and graft; Z72.0 Tobacco use; Z85.828 Personal history of other malignant neoplasm of skin; Z83.438 Family history of other disorder of lipoprotein metabolism and other lipidemia; Z83.49 Family history of other endocrine, nutritional and metabolic diseases
CPT/HCPCS: 11106; 11107 ×3; J2405

== ENCOUNTER → 2021-08-16 16:47 | Outpatient (CLI) | payer BC, SELFPAY | PROVIDERS: PCP Nurse Practitioner Family; Visit Provider Surgery | DX: Z01.812 Encounter for preprocedural laboratory examination (principal); Z11.52 Encounter for screening for COVID-19; C44.92 Squamous cell carcinoma of skin, unspecified | CPT/HCPCS: C9803; U0003; U0005 ==

== ENCOUNTER 2021-08-18 07:33 | Day surgery (SDC) | payer BC, SELFPAY ==
[2021-08-17 11:09] VITALS: BMI 20.1
[2021-08-18 07:49] VITALS: BP 110/75; PULSE 68; RESP 16; TEMP 36.8; O2SAT 98
[2021-08-18 08:03] LABS: Basophils # 0.2 K/mm3 (0-0.2); Basophils % 1.7 % (0.1-2.0); Eosinophils # 0.5 K/mm3 (0.0-0.4); Eosinophils % 5.2 % (0.1-12.0); Hemoglobin 14.8 g/dL (12.2-16.2); Lymphocytes # 1.7 K/mm3 (0.7-4.5); Mean Corpuscular HGB Conc 33.7 g/dL (31.8-35.4); Mean Corpuscular Hemoglobin 33.4 pg (27.0-31.2); Mean Corpuscular Volume 99.1 fl (81-99); Mean Platelet Volume 8.4 fl (7.4-10.4); Monocytes # 0.4 K/mm3 (0.1-1.0); Monocytes % 4.6 % (1.7-9.3); Neutrophils # 6.7 K/mm3 (1.8-7.8); Neutrophils % 70.5 % (37.0-80.0); Platelet Count 290 K/mm3 (142-424); Red Blood Count 4.44 M/mm3 (4.20-5.40); Red Cell Distribution Width 13.4 % (11.5-17.5); White Blood Count 9.6 K/mm3 (4.8-10.8)
--- NOTE | 2021-08-18 08:13 | P.PN_ITS ---
[facility] Anesthesia Checklist - Patient Identification Patient Identification: Arm Band - Structural Data Admitted From: Home Planned Operative Procedure/s: Excision perineal lesion Consent for Planned Operative Procedure(s) Verified: Yes - NPO Status Verified Time NPO: 00:00 - Additional verifications Anesthesia Reactions: No Hx Blood Transfusions: No Blood Transfusion Reaction: No - Airway Assessment C-Spine Mobility Assessed: Yes TMJ Mobility Assessed: Yes Dentition: Good Dentition - Neurological Assessment Level of Consciousness: Awake Hx Seizures: No Numbness or tingling in extremities: No - Anesthesia Plan Anesthesia Risk discussed: Yes Anesthesia Plan: Verified ASA Class: II Anesthesia Type: MAC [facility] History I have reviewed the patient's past medical history: Yes Medical History: Reports:: Gastroesophageal Reflux Disease(GERD), Hyperlipidemia, Hypertension, Peripheral Artery Disease Denies:: Cancer, Diabetes Mellitus Type 1, Diabetes Mellitus Type 2, Internal Pacemaker, MRSA, Seizures *Have you ever received a pneumonia vaccine?: No *Have you received a flu vaccine this season?: Yes Other Medical History: Reports: Hypothyroidism. Denies: Blood Transfusion Reaction Anesthesia experience/problems:: None Laterality Cases: Bilateral: Arthroscopy Shoulder Other Surgeries: Yes: Colonoscopy, Coronary Stent (bilateral calf), Hysterectomy-Partial, Skin Cancer Excision, Other. No: Pacemaker Amputation: No Fractures: No - *Social History Last grade of school completed: High school graduate Smoking Status: Current every day smoker Tobacco Type: cigarettes # Packs/Day (cigarettes): 1 Alcohol Intake: never Substance Use Type: denies use *Occupational Status:: employed Housing: house Household Members: none *Travel in the last 8 weeks: None Family Hx:: Hyperlipidemia, Thyroid Disorder
[2021-08-18 08:26] LABS: Chloride 110 mmol/L (98-107)
[2021-08-18 08:27] LABS: Potassium 4.2 mmoL/L (3.5-5.1); Sodium 140 mmol/L (136-145)
[2021-08-18 08:29] LABS: Alanine Aminotransferase 21 U/L (12-78); Alkaline Phosphatase 85 U/L (38-126); Anion Gap 10.2 mEq/L (5-15); Aspartate Amino Transferase 39 U/L (14-36); Bilirubin,Total 0.8 mg/dl (0.2-1.3); Blood Urea Nitrogen 28 mg/dl (7-17); Carbon Dioxide 24 mmol/L (22.0-30.0); Creatinine Clearance Estimated 47 mL/min (50-200); Estimated Glomerular Filt Rate 85 ml/min (>60); GFR (African American) 103 ML/MIN (>60)
[2021-08-18 08:30] LABS: Albumin Level 4.2 g/dl (3.5-5.0); Albumin/Globulin Ratio 1.5 (1.1-1.8); Calcium 9.6 mg/dl (8.4-10.2); Globulin 2.8 g/dL (1.3-3.2); Glucose 66 mg/dl (74-100)
--- NOTE | 2021-08-18 09:54 | HMH.OPNOTE ---
Date of procedure: 08/18/21 Pre-op Diagnosis:: Perineal/perianal squamous cell carcinoma Post-op Diagnosis:: Same Procedure performed:: Excision of perineal/perianal squamous cell carcinoma Surgeon:: Melchor Boone MD Anesthesia: LMA Estimated blood loss (mL): 5 Operative findings:: Central region from prior excision reexcised Operative note:: After informed consent was obtained the patient was taken to the operating room and placed in the supine position. General anesthesia with laryngeal mask airway was achieved. She was then transferred to a modified lithotomy position. Her perianal/perineal region was prepped and draped in a sterile fashion. After infiltration local anesthetic an elliptical incision around the central scar (prior excision site) was made with scalpel. The subcutaneous tissue was dissected and the specimen was excised in toto and passed off for pathologic evaluation. Electrocautery was utilized to achieve hemostasis. The central portion of the wound was reapproximated with interrupted Vicryl. Dressings were applied and the patient was transferred to recovery in stable condition after removal of her laryngeal mask airway. Condition: stable Disposition: PACU Specimens:: Perineal/perianal squamous cell carcinoma Complications:: No immediate
[2021-08-18 09:56] VITALS: BP 94/45; PULSE 67; RESP 18; TEMP 36.3; O2SAT 96
[2021-08-18 10:06] VITALS: BP 104/66; PULSE 65; RESP 18; O2SAT 99
[2021-08-18 10:16] VITALS: BP 119/64; PULSE 61; RESP 18; O2SAT 96
[2021-08-18 10:26] VITALS: BP 115/60; PULSE 69; RESP 18; O2SAT 97
[2021-08-18 10:35] VITALS: BP 113/66; PULSE 68; RESP 18; TEMP 36.4; O2SAT 97
== END 2021-08-18 10:35 | disposition home or self-care (01) ==
LOC: OR 07:34
PROVIDERS: PCP Nurse Practitioner Family; Visit Provider Surgery
PROC: (CPT 11422; principal; 2021-08-18 09:15)
DX: D04.5 Carcinoma in situ of skin of trunk (principal); K21.9 Gastro-esophageal reflux disease without esophagitis; E78.5 Hyperlipidemia, unspecified; I10 Essential (primary) hypertension; I73.9 Peripheral vascular disease, unspecified; E03.9 Hypothyroidism, unspecified; Z72.0 Tobacco use; Z83.438 Family history of other disorder of lipoprotein metabolism and other lipidemia; Z83.49 Family history of other endocrine, nutritional and metabolic diseases; Z79.82 Long term (current) use of aspirin; Z79.899 Other long term (current) drug therapy
CPT/HCPCS: 11422; 80053; 85025; 96374; J2405

== ENCOUNTER → 2021-09-16 12:23 | Outpatient (CLI) | payer BC, SELFPAY | PROVIDERS: PCP Nurse Practitioner Family; Visit Provider Surgery Surgical Oncology | DX: Z01.812 Encounter for preprocedural laboratory examination (principal); Z11.52 Encounter for screening for COVID-19 | CPT/HCPCS: C9803; U0003; U0005 ==

== ENCOUNTER → 2021-10-04 16:43 | Outpatient (CLI) | payer BC, SELFPAY | PROVIDERS: PCP Nurse Practitioner Family; Visit Provider Surgery | DX: Z01.812 Encounter for preprocedural laboratory examination (principal); Z20.822 Contact with and (suspected) exposure to COVID-19; C44.92 Squamous cell carcinoma of skin, unspecified | CPT/HCPCS: C9803; U0003; U0005 ==

== ENCOUNTER 2021-10-06 08:02 | Day surgery (SDC) | payer BC, SELFPAY ==
[2021-10-05 11:23] VITALS: BMI 19.2
[2021-10-06 08:17] VITALS: BP 128/62; PULSE 72; RESP 18; TEMP 36.8; O2SAT 98
--- NOTE | 2021-10-06 08:45 | HMH.ANESCL ---
[facility] Anesthesia Checklist - Structural Data Admitted From: Home Planned Operative Procedure/s: perineal bx Consent for Planned Operative Procedure(s) Verified: Yes - Additional verifications Anesthesia Reactions: No Hx Blood Transfusions: No Blood Transfusion Reaction: No - Airway Assessment C-Spine Mobility Assessed: Yes TMJ Mobility Assessed: Yes Dentition: Edentulous - Neurological Assessment Level of Consciousness: Awake, Alert, Appropriate - Anesthesia Plan Anesthesia Risk discussed: Yes Anesthesia Plan: Verified ASA Class: II Anesthesia Type: General [facility] History I have reviewed the patient's past medical history: Yes Medical History: Reports:: Gastroesophageal Reflux Disease(GERD), Hyperlipidemia, Hypertension, Peripheral Artery Disease Denies:: Cancer, Diabetes Mellitus Type 1, Diabetes Mellitus Type 2, Internal Pacemaker, MRSA, Seizures *Have you ever received a pneumonia vaccine?: No *Have you received a flu vaccine this season?: Yes Other Medical History: Reports: Hypothyroidism. Denies: Blood Transfusion Reaction Anesthesia experience/problems:: none Laterality Cases: Bilateral: Arthroscopy Shoulder Other Surgeries: Yes: Colonoscopy, Coronary Stent (bilateral calf), Hysterectomy-Partial, Skin Cancer Excision, Other. No: Pacemaker Amputation: No Fractures: No - *Social History Last grade of school completed: High school graduate Smoking Status: Current every day smoker Tobacco Type: cigarettes # Packs/Day (cigarettes): 1 Alcohol Intake: never Substance Use Type: denies use *Occupational Status:: employed Housing: house Household Members: none *Travel in the last 8 weeks: None Family Hx:: Heart Attack
--- NOTE | 2021-10-06 10:06 | HMH.OPNOTE ---
Date of procedure: 10/06/21 Pre-op Diagnosis:: Perianal/perineal squamous cell carcinoma Post-op Diagnosis:: Same Procedure performed:: Reexcision perianal/perineal squamous cell carcinoma Surgeon:: Melchor Boone MD Anesthesia: LMA Estimated blood loss (mL): 5 Operative findings:: Well-healed scar tissue from prior excisions Operative note:: After informed consent was obtained the patient was taken to the operating room and placed in the supine position. General anesthesia with laryngeal mask airway was achieved. She was transferred to modified lithotomy position. Her perianal/perineal region was prepped and draped in a sterile fashion. After infiltration local anesthetic the right lateral margin of the prior excision was carefully elevated and transected sharply with scalpel. The left lateral margin was excised in a similar manner. Electrocautery was utilized to achieve hemostasis. Each reexcision was passed off for pathologic evaluation. Dressings were applied and the patient was transferred recovery in stable condition. Condition: stable Disposition: PACU Specimens:: Perianal/perineal squamous cell carcinoma?reexcision right lateral margin Perianal/perineal squamous cell carcinoma?reexcision left lateral margin Complications:: No immediate
[2021-10-06 10:13] VITALS: BP 94/54; PULSE 77; RESP 18; TEMP 36.2; O2SAT 92
[2021-10-06 10:23] VITALS: BP 113/57; PULSE 62; RESP 16; O2SAT 91
[2021-10-06 10:33] VITALS: BP 101/64; PULSE 78; RESP 16; O2SAT 91
[2021-10-06 10:43] VITALS: BP 95/60; PULSE 80; RESP 16; O2SAT 95
[2021-10-06 10:50] VITALS: BP 105/59; PULSE 73; RESP 18; TEMP 36.2; O2SAT 93
== END 2021-10-06 10:50 | disposition home or self-care (01) ==
LOC: OR 08:04
PROVIDERS: PCP Nurse Practitioner Family; Visit Provider Surgery
PROC: (CPT 11600; principal; 2021-10-06 11:15)
DX: C44.92 Squamous cell carcinoma of skin, unspecified (principal); E78.5 Hyperlipidemia, unspecified; I10 Essential (primary) hypertension; I73.9 Peripheral vascular disease, unspecified; K21.9 Gastro-esophageal reflux disease without esophagitis; E03.9 Hypothyroidism, unspecified; Z72.0 Tobacco use; Z82.3 Family history of stroke; Z79.82 Long term (current) use of aspirin; Z79.899 Other long term (current) drug therapy
CPT/HCPCS: 11600 ×2; 96374; J2405

== ENCOUNTER → 2021-11-17 10:39 | Outpatient (CLI) | payer BC, SELFPAY ==
--- NOTE | 2021-11-17 10:44 | XR_ITS ---
FINAL REPORT CLINICAL HISTORY: PAIN IN LEFT SHOULDER DECREASED ROM OF LEFT SHOULDER. FINDINGS: LEFT SHOULDER Three views were obtained. There is no acute fracture or dislocation. There are mild degenerative changes of the acromioclavicular and glenohumeral joints. No soft tissue abnormality is identified. IMPRESSION: Mild degenerative changes. Reviewed, Interpreted and Dictated by Dusty Ryan III, MD Transcribed by Mee Sherman Authenticated and [facility]
== END ==
PROVIDERS: PCP Nurse Practitioner Family; Visit Provider Nurse Practitioner Family
DX: M25.512 Pain in left shoulder (principal); M25.612 Stiffness of left shoulder, not elsewhere classified; Z98.890 Other specified postprocedural states
CPT/HCPCS: 73030

== ENCOUNTER → 2022-03-09 16:44 | Outpatient (CLI) | payer BC, SELFPAY ==
--- NOTE | 2022-03-09 16:44 | MM_ITS ---
PROCEDURE INFORMATION: Exam: MG Bilateral Screening 3D Mammography Exam date and time: 03/09/2022 4:37 PM Age: 61 years old Clinical indication: Screening mammogram TECHNIQUE: Imaging protocol: Bilateral Screening tomosynthesis and 2D mammography including computer-aided detection (CAD) when performed. COMPARISON: 1. MG MM DIG SCREENING MAMM BI W/CAD 03/07/2021 3:44 PM 2. MG MM DIG SCREENING MAMM BI W/CAD 03/05/2020 12:59 PM 3. MG SCREENING MAMMO DIGITAL W/ CAD 10/07/2015 3:33 PM FINDINGS: MAMMOGRAPHY: Breast composition: There are scattered areas of fibroglandular density. Mass: None. Architectural distortion: No new or suspicious architectural distortion. Calcifications: No new or suspicious calcifications are present Asymmetric density: No new or suspicious asymmetric density is present Skin thickening: None. Axillary adenopathy: None. IMPRESSION: No mammographic evidence of malignancy. Recommend annual screening mammography unless otherwise clinically indicated. ASSESSMENT: BI-RADS category 1: Negative
== END ==
PROVIDERS: PCP Nurse Practitioner Family; Visit Provider Obstetrics & Gynecology
DX: Z12.31 Encounter for screening mammogram for malignant neoplasm of breast (principal)
CPT/HCPCS: 77063; 77067

== ENCOUNTER → 2022-05-26 13:01 | Outpatient (CLI) | payer BC, SELFPAY ==
--- NOTE | 2022-05-26 13:05 | XR_ITS ---
FINAL REPORT CLINICAL HISTORY: LOW BACK PAIN FINDINGS: LUMBAR SPINE Five views demonstrate no acute fracture. There are mild and moderate degenerative changes with multilevel osteophytes. There is moderate vascular calcification. Iliac artery stents are present. There is no malalignment. IMPRESSION: Degenerative changes with no acute process. Reviewed, Interpreted and Dictated by Dusty Ryan III, MD Transcribed by Mee Sherman Authenticated and . [facility]
== END ==
PROVIDERS: PCP Nurse Practitioner Family; Visit Provider Nurse Practitioner Family
DX: M54.50 Low back pain, unspecified (principal)
CPT/HCPCS: 72110

== ENCOUNTER 2022-07-02 11:30 | Emergency (ER) | payer BC, SELFPAY ==
[2022-07-02 12:15] VITALS: BP 141/86; PULSE 78; RESP 18; TEMP 36.6; O2SAT 99; BMI 19.5
--- NOTE | 2022-07-02 12:40 | EXP.UTC ---
Discharge Plan Disposition Patient Disposition: Home, Self-Care Condition: Good Prescriptions Prescriptions: New cephalexin 500 mg capsule 500 mg PO Q8H 7 Days Qty: 21 0RF No Action clopidogrel 75 MG tablet 75 mg PO DAILY omeprazole 20 MG capsule,delayed release(DR/EC) 20 mg PO DAILY naproxen 500 MG tablet 500 mg PO DAILY levothyroxine 112 MCG tablet 112 mcg PO DAILY rosuvastatin 20 MG tablet 20 mg PO DAILY aspirin 81 MG tablet,delayed release (DR/EC) 81 mg PO DAILY Referrals Follow up/Referrals: Alycia Delgado APRN [Primary Care Provider] - See instructions Activity Restrictions/Add. Instructions Additional Instructions/Restrictions: Follow up with Plastics You may call for appointment [phone] Follow up with your Family Doctor Use medication as prescribed Gently clean area twice daily with antibacterial soap and water and pat dry Follow up immediatley if any signs of infection Use topical medication twice daily as directed for 7 days Clinical Impressions Clinical Impression: Burn of hand Qualifiers: Encounter type: initial encounter Burn of hand location: unspecified site Laterality: left Burn degree: unspecified degree Qualified Code(s): T23.002A - Burn of unspecified degree of left hand, unspecified site, initial encounter Stand Alone Forms Stand Alone Forms: Work/School Release Instructions Patient Instructions: DI for Clancy, Clancy, Silver Sulfadiazine Discharge ED Provider: Ellie Mercedes [facility] General Stated complaint: LT hand burn AO@home 07/01 Mode of Arrival: Ambulatory Source of Information: Patient Limitations: No Limitations Time Seen by Provider: 07/02/22 12:40 Description of Symptoms (Recalled from Triage Doc. by RN): PATIENT C/O BURN TO LEFT HAND THAT SHE GOT WHILE DRAINING POTATOES LAST NIGHT HEENT Symptoms (Recalled from RN notes): No Resp Symptoms (Recalled from RN notes): No Skin Symptoms (Recalled from RN notes): Yes MS Symptoms (Recalled from RN notes): No Functional Status (Recalled from RN notes): WNL History of Present Illness Provider Complaint: Patient states that she was draining potatoes last night when she burned her left hand States that she has a blister on the side of the palm of her left hand that has got a little bigger and more sore States that called the nurse line and they told her that she needed to come in and get something for it so it doesnt get infected Related Data Home Medications Medication Instructions Recorded Confirmed aspirin 81 mg tablet,delayed 81 mg PO DAILY heart health 03/15/20 03/24/22 release clopidogrel 75 mg tablet 75 mg PO DAILY stents 03/15/20 03/24/22 levothyroxine 112 mcg tablet 112 mcg PO DAILY thyroid 03/15/20 03/24/22 naproxen 500 mg tablet 500 mg PO DAILY Pain 03/15/20 03/24/22 omeprazole 20 mg capsule,delayed 20 mg PO DAILY GERD 03/15/20 03/24/22 release rosuvastatin 20 mg tablet 20 mg PO DAILY Cholesterol 03/15/20 03/24/22 Previous Rx's Medication Instructions Recorded cephalexin 500 mg capsule 500 mg PO Q8H 7 days #21 caps 07/02/22 Allergies Allergy/AdvReac Type Severity Reaction Status Date / Time No Known Allergies Allergy Verified 03/24/22 09:17 Worker's Comp Is this a Worker's Comp case?: No [facility] Disclaimer: The information contained in this section may have been updated after the patient was seen, as this information can be updated by other users. Medical History (Updated 07/02/22 @ 13:02 by Ellie Mercedes APRN) Cancer Hx of rotator cuff tear Hyperlipidemia Surgical History History of hysterectomy Hx of shoulder replacement Social History (Updated 07/02/22 @ 12:27 by Esha Barrow RN) Smoking Status: Current every day smoker tobacco type: cigarettes packs per day: 1 alcohol intake: never substance use type: denies use current occupational status: employed
[2022-07-02 13:03] VITALS: BP 141/86; PULSE 78; RESP 18; TEMP 36.6; O2SAT 99
--- NOTE | 2022-07-02 13:05 | PC.NURSE ---
SILVADENE CREAM AND DRY NON-ADHERENT DRESSING APPLIED TO BURN AREA AT THIS TIME
== END 2022-07-02 13:09 | disposition home or self-care (01) ==
PROVIDERS: Emergency Provider Nurse Practitioner; PCP Nurse Practitioner Family
DX: T23.252A Burn of second degree of left palm, initial encounter (principal); T31.0 Burns involving less than 10% of body surface; X12.XXXA Contact with other hot fluids, initial encounter
CPT/HCPCS: 99212; 99213; G0463

== ENCOUNTER → 2022-08-17 12:30 | Outpatient (CLI) | payer BC, SELFPAY ==
--- NOTE | 2022-08-17 12:44 | ECG_ITS ---
APPROVED REPORT Exam: Resting ECG HR:57 bpm ECG Measurements Heart Rate 57 AXES RI 149 P 80 QRSd 84 QRS 71 QT 399 T 75 QTc 393 Conclusion SINUS BRADYCARDIA BORDERLINE ECG UNCONFIRMED REPORT Electronically signed by : Stephen Vuong MD 08/18/2022 17:02:32
[2022-08-17 13:19] LABS: Basophils # 0.1 K/mm3 (0-0.2); Basophils % 1.3 % (0.1-2.0); Eosinophils # 0.3 K/mm3 (0.0-0.4); Eosinophils % 3.9 % (0.1-12.0); Hematocrit 43.5 % (37.0-47.0); Hemoglobin 13.8 g/dL (12.2-16.2); Lymphocytes # 2.1 K/mm3 (0.7-4.5); Lymphocytes % 26.1 % (10-50); Mean Corpuscular HGB Conc 31.8 g/dL (31.8-35.4); Mean Corpuscular Hemoglobin 31.3 pg (27.0-31.2); Mean Corpuscular Volume 98.6 fl (81-99); Mean Platelet Volume 7.4 fl (7.4-10.4); Monocytes # 0.3 K/mm3 (0.1-1.0); Monocytes % 4.3 % (1.7-9.3); Neutrophils # 5.2 K/mm3 (1.8-7.8); Neutrophils % 64.3 % (37.0-80.0); Platelet Count 257 K/mm3 (142-424); Red Blood Count 4.42 M/mm3 (4.20-5.40); Red Cell Distribution Width 13.3 % (11.5-17.5); White Blood Count 8.1 K/mm3 (4.8-10.8)
[2022-08-17 13:56] LABS: Chloride 106 mmol/L (98-107); Potassium 4.4 mmoL/L (3.5-5.1); Sodium 137 mmol/L (136-145)
[2022-08-17 13:58] LABS: Blood Urea Nitrogen 20 mg/dl (7-17); Estimated Glomerular Filt Rate 101 ml/min (>60); GFR (African American) 123 ML/MIN (>60)
[2022-08-17 13:59] LABS: Alanine Aminotransferase 16 U/L (12-78); Albumin Level 4.1 g/dl (3.5-5.0); Albumin/Globulin Ratio 1.5 (1.1-1.8); Alkaline Phosphatase 91 U/L (38-126); Anion Gap 8.4 mEq/L (5-15); Aspartate Amino Transferase 32 U/L (14-36); Bilirubin,Total 0.4 mg/dl (0.2-1.3); Calcium 9.5 mg/dl (8.4-10.2); Carbon Dioxide 27 mmol/L (22.0-30.0); Globulin 2.7 g/dL (1.3-3.2); Glucose 76 mg/dl (74-100); Total Protein,Serum 6.8 g/dl (6.3-8.2)
== END ==
PROVIDERS: PCP Nurse Practitioner Family; Visit Provider Surgery
DX: Z01.818 Encounter for other preprocedural examination (principal); C44.92 Squamous cell carcinoma of skin, unspecified
CPT/HCPCS: 36415; 80053; 85025; 93005

== ENCOUNTER 2022-08-31 06:08 | Day surgery (SDC) | payer BC, SELFPAY ==
[2022-08-30 11:18] VITALS: BMI 19.5
[2022-08-31 06:26] VITALS: BP 105/56; PULSE 73; RESP 18; TEMP 36.3; O2SAT 97
--- NOTE | 2022-08-31 06:47 | P.PN_ITS ---
[facility] Disclaimer: The information contained in this section may have been updated after the patient was seen, as this information can be updated by other users. Medical History Cancer History of gastroesophageal reflux (GERD) Hx of rotator cuff tear Hyperlipidemia Hyperlipidemia Hypertension Hypothyroid Menopause Surgical History History of colonoscopy History of hysterectomy Hx of shoulder replacement Family History Mother Family history of cancer Sister Family history of myocardial infarction Family history of hypothyroidism Social History Smoking Status: Current every day smoker tobacco type: cigarettes packs per day: 1 alcohol intake: never substance use type: denies use current occupational status: employed Travel in the last 8 weeks: None household members: none housing: house current occupation: [employer] current occupational exposures/hazards: No caffeine: Yes [facility] Anesthesia Checklist Patient Identification Patient Identification: Arm Band and Family Structural Data Admitted From: Home Planned Operative Procedure/s: EUA vaginal area Consent for Planned Operative Procedure(s) Verified: Yes Verified Documents: Surgical Consent and History and Physical NPO Status Verified Time NPO: 00:00 Additional verifications Patient : No Anesthesia Reactions: No Hx Blood Transfusions: No Blood Transfusion Reaction: No Cephalosporin Allergy: No Previous Colonoscopy: No Cardiovascular Assessment Peripheral Edema: No Airway Assessment C-Spine Mobility Assessed: Yes TMJ Mobility Assessed: Yes Dentition: Partials Neurological Assessment Level of Consciousness: Awake, Alert, Appropriate and Follows Commands Hx Seizures: No Numbness or tingling in extremities: No Anesthesia Plan ASA Class: II Anesthesia Type: General Preoperative Comments Pre-Operative Comments: Smoker. Off plavix X10 days. History of stents lower legs.
--- NOTE | 2022-08-31 07:32 | P.OP_ITS ---
Date of procedure: 08/31/22 Pre-op Diagnosis:: History of perianal/perineal squamous cell carcinoma Post-op Diagnosis:: Same Procedure performed:: Examination under anesthesia with perineal/perianal biopsy Surgeon:: Melchor Boone MD Anesthesia: MAC and local Estimated blood loss (mL): 5 Operative findings:: Normal-appearing scar tissue status post prior excision/biopsy Anal margin and anal canal without obvious abnormality Operative note:: After informed consent was obtained the patient was taken to the operating room and placed in the supine position. Monitored anesthesia care ensued and she was transferred to a modified lithotomy position. Her perianal/perineal region was prepped and draped in a sterile fashion. Digital rectal exam revealed no palpable abnormality with the exception of anterior and lateral margin scar tissue from prior excision/biopsy (just distal to the anal verge). Visual inspection also revealed no anal canal abnormality. After infiltration local anesthetic a right perianal/perineal biopsy was completed with scalpel. A left- sided biopsy was obtained in the same manner. The sites of biopsy were taken to coincide with the prior excision (lateral margins). Electrocautery was utilized to achieve hemostasis. The wounds were packed open and the patient was transferred to recovery in stable condition. Condition: stable Disposition: PACU Specimens:: Perianal/perineal right lateral margin biopsy Perianal/perineal left lateral margin biopsy Complications:: No immediate
[2022-08-31 07:42] VITALS: BP 92/60; PULSE 92; RESP 18; TEMP 36.2; O2SAT 99
[2022-08-31 07:52] VITALS: BP 100/42; PULSE 96; RESP 17; O2SAT 98
[2022-08-31 08:02] VITALS: BP 110/68; PULSE 78; RESP 17; O2SAT 95
== END 2022-08-31 08:04 | disposition home or self-care (01) ==
PROVIDERS: PCP Nurse Practitioner Family; Visit Provider Surgery
PROC: (CPT 46999; principal; 2022-08-31 07:30)
DX: L90.5 Scar conditions and fibrosis of skin (principal); Z85.048 Personal history of other malignant neoplasm of rectum, rectosigmoid junction, and anus; F17.210 Nicotine dependence, cigarettes, uncomplicated; Z79.899 Other long term (current) drug therapy
CPT/HCPCS: 46999; 96374

== ENCOUNTER 2023-02-18 10:00 | Emergency (ER) | payer OTHER, SELFPAY ==
[2023-02-18] VITALS (8 sets, daily range): BP systolic 114–140; BP diastolic 60–70; PULSE 58–86; RESP 17–18; TEMP 36.6–36.8; O2SAT 95–98; BMI 18.6; BMI 21.9
--- NOTE | 2023-02-18 10:03 | EXP.UTC ---
Discharge Plan Disposition Patient Disposition: Still a Patient Condition: Fair Prescriptions Prescriptions: No Action clopidogrel 75 MG tablet 75 mg PO DAILY naproxen 500 MG tablet 500 mg PO BID levothyroxine 112 MCG tablet 112 mcg PO DAILY rosuvastatin 20 MG tablet 20 mg PO DAILY aspirin 81 MG tablet,delayed release (DR/EC) 81 mg PO DAILY Referrals Follow up/Referrals: Tereso Jaeger MD [Primary Care Provider] - See instructions Clinical Impressions Clinical Impression: Abdominal pain Discharge ED Provider: Alan Jasmine [facility] [place] HPI General Stated complaint: Right side Time Seen by Provider: 02/18/23 10:13 History of Present Illness Provider Complaint: She c/o right lower quadrant abdominal pain since yesterday. She denies any fever/chills. She denies any urinary symptoms. Related Data Home Medications Medication Instructions Recorded Confirmed aspirin 81 mg tablet,delayed 81 mg PO DAILY heart health 03/15/20 02/18/23 release clopidogrel 75 mg tablet 75 mg PO DAILY stents 03/15/20 02/18/23 levothyroxine 112 mcg tablet 112 mcg PO DAILY thyroid 03/15/20 02/18/23 naproxen 500 mg tablet 500 mg PO BID Pain 03/15/20 02/18/23 rosuvastatin 20 mg tablet 20 mg PO DAILY Cholesterol 03/15/20 02/18/23 Allergies Allergy/AdvReac Type Severity Reaction Status Date / Time No Known Allergies Allergy Verified 02/18/23 10:18 [facility] Disclaimer: The information contained in this section may have been updated after the patient was seen, as this information can be updated by other users. Medical History Cancer History of gastroesophageal reflux (GERD) Hx of rotator cuff tear Hyperlipidemia Hyperlipidemia Hypertension Hypothyroid Menopause Surgical History History of colonoscopy History of hysterectomy Hx of shoulder replacement Family History Mother Family history of cancer Sister Family history of myocardial infarction Family history of hypothyroidism Social History Smoking Status: Current every day smoker tobacco type: cigarettes packs per day: 1 alcohol intake: never substance use type: denies use current occupational status: employed Travel in the last 8 weeks: None household members: none housing: house current occupation: [employer] current occupational exposures/hazards: No caffeine: Yes ROS Obtained: Yes All systems reviewed & no additional complaints except as documented Constitutional Constitutional: Denies chills, Denies fever(s) and Reports poor appetite ENT Ears, Nose, Mouth, and Throat: Denies dizziness and Denies sore throat Cardiovascular Cardiovascular: Denies dyspnea Respiratory Respiratory: Denies chest congestion, Denies cough and Denies dyspnea Gastrointestinal Gastrointestingal: Reports as per HPI and abdominal pain Genitourinary Female Genitourinary: Denies difficulty voiding, Denies dysuria, Denies hematuria, Denies urinary frequency, Denies urinary incontinence, Denies urinary hesitancy and Denies urinary urgency Musculoskeletal Musculoskeletal: Denies arthralgias Integumentary/Breasts Skin/Breast: Denies rash Neurologic Neurologic: Denies dizziness Physical Exam General General appearance: alert and in no apparent distress Head Head exam: atraumatic and normocephalic Eye Eye exam: Present normal appearance, PERRL and EOMI ENT ENT exam: Present normal exam, normal oropharynx, mucous membranes moist, TM's normal bilaterally and normal external ear exam Neck Neck exam: Present normal inspection, full ROM and trachea midline; Absent tenderness, meningismus or lymphadenopathy Chest Chest inspection: Present normal inspection and symmetric chest wall rise; Absent tenderness, rash or ab
[2023-02-18 10:21] LABS: Microscopic, Urine URINE MICROSCOPIC (MICROSCOPIC)
[2023-02-18 10:26] LABS: Appearance,Urine CLEAR (Clear); Bilirubin,Urine Negative (Negative); Blood, Urine Negative (Negative); Color,Urine YELLOW (Yellow); Glucose,Urine (UA) Negative (Negative); Ketones,Urine Negative (Negative); Leukocyte Esterase,Urine Negative (Negative); Nitrate,Urine Negative (Negative); PH,Urine 5.5 (5.0-8.5); Protein,Urine Negative (Negative); Specific Gravity, Urine >= 1.030 (1.005-1.030); Urobilinogen,Urine 0.2 EU/dl (0.2)
--- NOTE | 2023-02-18 10:38 | PC.NURSE ---
Dr. Bolivar s/w Maximino Maloney APRN regarding pt transfer. Advised Anisa Stanton RN to place pt in room 7
--- NOTE | 2023-02-18 10:39 | PC.NURSE ---
Pt ambulated to ED room 7 from [facility]
[2023-02-18 10:46] LABS: Bacteria,Urine Trace /lpf; Squamous Epithelial Cell,Urine Occasional #/hpf (0-5); WBC,Urine Occasional #/hpf (0-3)
[2023-02-18 11:04] LABS: Basophils # 0.1 K/mm3 (0-0.2); Basophils % 0.8 % (0.1-2.0); Eosinophils # 0.2 K/mm3 (0.0-0.4); Eosinophils % 1.9 % (0.1-12.0); Hematocrit 48.9 % (37.0-47.0); Hemoglobin 15.8 g/dL (12.2-16.2); Lymphocytes # 1.1 K/mm3 (0.7-4.5); Lymphocytes % 10.3 % (10-50); Mean Corpuscular HGB Conc 32.3 g/dL (31.8-35.4); Mean Corpuscular Hemoglobin 30.6 pg (27.0-31.2); Monocytes # 0.5 K/mm3 (0.1-1.0); Monocytes % 4.3 % (1.7-9.3); Neutrophils # 9.1 K/mm3 (1.8-7.8); Neutrophils % 82.7 % (37.0-80.0); Platelet Count 284 K/mm3 (142-424); Red Blood Count 5.15 M/mm3 (4.20-5.40)
--- NOTE | 2023-02-18 11:04 | PC.NURSE ---
DR ALMARAZ AT BEDSIDE
[2023-02-18 11:05] LABS: Chloride 107 mmol/L (98-107); Sodium 139 mmol/L (136-145)
[2023-02-18 11:06] LABS: Potassium 4.3 mmoL/L (3.5-5.1)
[2023-02-18 11:08] LABS: Alanine Aminotransferase 20 U/L (12-78); Alkaline Phosphatase 81 U/L (38-126); Anion Gap 10.3 mEq/L (5-15); Aspartate Amino Transferase 39 U/L (14-36); Bilirubin,Total 0.5 mg/dl (0.2-1.3); Blood Urea Nitrogen 22 mg/dl (7-17); Calcium 9.8 mg/dl (8.4-10.2); Carbon Dioxide 26 mmol/L (22.0-30.0); Creatinine Clearance Estimated 50 mL/min (50-200); Estimated Glomerular Filt Rate 85 ml/min (>60); GFR (African American) 103 ML/MIN (>60); Glucose 95 mg/dl (74-100); Lipase 40 U/L (23-300)
[2023-02-18 11:09] LABS: Albumin Level 4.3 g/dl (3.5-5.0); Albumin/Globulin Ratio 1.1 (1.1-1.8); Globulin 3.9 g/dL (1.3-3.2); Total Protein,Serum 8.2 g/dl (6.3-8.2)
--- NOTE | 2023-02-18 11:11 | CT_ITS ---
PROCEDURE INFORMATION: Exam: CTA Abdomen and Pelvis With Contrast Exam date and time: 02/18/2023 12:03 PM Age: 62 years old Clinical indication: Abdominal pain; Localized; Right lower quadrant (rlq); Additional info: Rlq pain, poss mesenteric ischemia TECHNIQUE: Imaging protocol: Computed tomographic angiography of the abdomen and pelvis with contrast. Exam focused on the arteries. 3D rendering (Not supervised by radiologist): MIP and/or 3D reconstructed images were created by the technologist. Radiation optimization: All CT scans at this facility use at least one of these dose optimization techniques: automated exposure control; mA and/or kV adjustment per patient size (includes targeted exams where dose is matched to clinical indication); or iterative reconstruction. Contrast material: ISOVUE 370; Contrast volume: 100 ml; Contrast route: INTRAVENOUS (IV); REPORTING DATA: Count of CT and Cardiac NM exams in prior 12 months: This patient has received 0 known CTs and 0 known cardiac nuclear medicine studies in the 12 months prior to the current study. COMPARISON: CT PELVIS W CON 09/01/2020 1:45 PM FINDINGS: Lungs: 7 mm oblong shaped nodular density left lower lobe, likely benign. Lung bases are otherwise clear. Aorta: Scattered atherosclerotic changes of the abdominal aorta. There is no aortic aneurysm or significant stenosis. Celiac trunk and mesenteric arteries: Celiac trunk, SMA and VALENTIN are patent. Renal arteries: No occlusion or significant stenosis. Right iliac arteries: Diffuse atherosclerotic changes right iliac vessels without hemodynamic significant stenosis. Left iliac arteries: Diffuse atherosclerotic changes left iliac vessels without hemodynamic significant stenosis. Liver: No mass. Gallbladder and bile ducts: Unremarkable. No calcified stones. No ductal dilation. Pancreas: Unremarkable. Main pancreatic duct is not significantly dilated. Spleen: Unremarkable. No splenomegaly. Adrenal glands: Unremarkable. No mass. Kidneys and ureters: Unremarkable. No solid mass. No hydronephrosis. Stomach and bowel: Large amount of stool throughout the colon most pronounced within the right colon and transverse colon likely representing some degree of constipation. Appendix: Appendix cannot be identified with confidence. However no findings suggestive of acute appendicitis. Intraperitoneal space: Unremarkable. No free air. No significant fluid collection. Lymph nodes: Unremarkable. No enlarged lymph nodes. Urinary bladder: There is an 8 cm bladder diverticulum arising from the posterior bladder wall left midline unchanged. Reproductive: Unremarkable as visualized. Bones/joints: Moderate degenerative changes lower lumbar spine. No acute bony abnormalities. Soft tissues: Unremarkable. IMPRESSION: 1. Scattered atherosclerotic changes of the abdominal aorta and iliac vessels. No aortic aneurysm. 2. Patency of the celiac trunk, SMA and VALENTIN. 3. Excessive amount of stool wall pronounced within the right side of the large bowel likely reflecting some degree of constipation. 4. 7 mm oblong shaped pulmonary nodule left lower lobe, probably benign. Recommend a 1 year follow-up study for continued surveillance.
--- NOTE | 2023-02-18 12:09 | PC.NURSE ---
pt return from CT via wheelchair
--- NOTE | 2023-02-18 13:19 | PC.NURSE ---
Rounded on pt. No needs voiced. Call light within reach.
--- NOTE | 2023-02-18 13:44 | PC.NURSE ---
Dr. Jasmine at to reevaluate pt
--- NOTE | 2023-03-18 01:12 | HMH.EDGENADL ---
Discharge Plan Disposition Patient Disposition: Home, Self-Care Condition: Good Prescriptions Prescriptions: New polyethylene glycol 3350 [Miralax] 17 gram/dose powder 17 g PO BID 5 Days Qty: 170 0RF No Action clopidogrel 75 MG tablet 75 mg PO DAILY naproxen 500 MG tablet 500 mg PO BID levothyroxine 112 MCG tablet 112 mcg PO DAILY rosuvastatin 20 MG tablet 20 mg PO DAILY aspirin 81 MG tablet,delayed release (DR/EC) 81 mg PO DAILY Referrals Follow up/Referrals: Tereso Jaeger MD [Primary Care Provider] - See instructions Activity Restrictions/Add. Instructions Additional Instructions/Restrictions: As discussed, it appears that your symptoms are most likely due to constipation. I prescribed MiraLAX.Please return to the emergency department if you experience any new or worsening symptoms. Clinical Impressions Clinical Impression: Constipation due to slow transit Abdominal pain Qualifiers: Abdominal location: right upper quadrant Qualified Code(s): R10.11 - Right upper quadrant pain Instructions Patient Instructions: Constipation, DI for Constipation Discharge ED Provider: Alan Jasmine Adult HPI General Chief complaint: PAIN Stated complaint: Right side Time Seen by Provider: 02/18/23 10:13 Mode of Arrival: Ambulatory Source of Information: Patient Limitations: No Limitations Description of Symptoms (Recalled from ER Triage Doc. by RN): PT WITH RIGHT SIDED PAIN THAT WAS MILD YESTERDAY. PAIN WORSE THIS AM, WORSE WITH MOVEMENT AND BREATHING History of Present Illness HPI narrative: Patient presents with right lower quadrant abdominal pain, moderate in severity, nonradiating, in the absence of fever, chills, dysuria, frequency, nausea, vomiting, sick contacts. She has not had similar symptoms before, has had symptoms she describes consistent with constipation, last bowel movement several days ago. No previous therapies. Symptoms worsened today which prompted presentation to the emergency department. Related Data Home Medications Medication Instructions Recorded Confirmed aspirin 81 mg tablet,delayed 81 mg PO DAILY heart health 03/15/20 02/18/23 release clopidogrel 75 mg tablet 75 mg PO DAILY stents 03/15/20 02/18/23 levothyroxine 112 mcg tablet 112 mcg PO DAILY thyroid 03/15/20 02/18/23 naproxen 500 mg tablet 500 mg PO BID Pain 03/15/20 02/18/23 rosuvastatin 20 mg tablet 20 mg PO DAILY Cholesterol 03/15/20 02/18/23 Previous Rx's Medication Instructions Recorded polyethylene glycol 3350 17 17 g PO BID 5 days #170 grams 02/18/23 gram/dose oral powder (Miralax) Allergies Allergy/AdvReac Type Severity Reaction Status Date / Time No Known Allergies Allergy Verified 02/18/23 10:18 [facility] Disclaimer: The information contained in this section may have been updated after the patient was seen, as this information can be updated by other users. Medical History Cancer History of gastroesophageal reflux (GERD) Hx of rotator cuff tear Hyperlipidemia Hyperlipidemia Hypertension Hypothyroid Menopause Surgical History History of colonoscopy History of hysterectomy Hx of shoulder replacement Family History Mother Family history of cancer Sister Family history of myocardial infarction Family history of hypothyroidism Social History Smoking Status: Current every day smoker tobacco type: cigarettes packs per day: 1 alcohol intake: never substance use type: denies use current occupational status: employed Travel in the last 8 weeks: None household members: none housing: house current occupation: [employer] current occupational exposures/hazards: No caffeine: Yes ROS Obtained: Yes S
== END 2023-02-18 14:08 | disposition home or self-care (01) ==
LOC: UTC 10:04 → ER 10:38
PROVIDERS: Nurse Practitioner Family; Emergency Provider Emergency Medicine; PCP Family Medicine
DX: R10.31 Right lower quadrant pain (principal); E78.5 Hyperlipidemia, unspecified; E03.9 Hypothyroidism, unspecified; I10 Essential (primary) hypertension; K59.01 Slow transit constipation; F17.210 Nicotine dependence, cigarettes, uncomplicated
CPT/HCPCS: 74174; 80053; 81001; 83690; 85025; 87086; 99284; Q9967

== ENCOUNTER → 2023-03-12 10:44 | Outpatient (CLI) | payer OTHER, SELFPAY ==
--- NOTE | 2023-03-12 10:50 | MM_ITS ---
PROCEDURE INFORMATION: Exam: MG Bilateral Screening 3D Mammography Exam date and time: 03/12/2023 10:43 AM Age: 62 years old Clinical indication: Screening examination TECHNIQUE: Imaging protocol: Bilateral Screening tomosynthesis and 2D mammography including computer-aided detection (CAD) when performed. COMPARISON: 1. MG MM DIG SCREENING MAMM BI W/CAD 03/09/2022 4:37 PM 2. MG MM DIG SCREENING MAMM BI W/CAD 03/07/2021 3:44 PM FINDINGS: MAMMOGRAPHY: Breast composition: There are scattered areas of fibroglandular density. Mass: None. Architectural distortion: None. Calcifications: No suspicious calcifications. Asymmetric density: None. Skin thickening: None. Axillary adenopathy: None. IMPRESSION: No mammographic evidence of malignancy. Annual screening is recommended unless otherwise clinically indicated. ASSESSMENT: BI-RADS Category 1: Negative
== END ==
PROVIDERS: PCP Family Medicine; Visit Provider Family Medicine
DX: Z12.31 Encounter for screening mammogram for malignant neoplasm of breast (principal)
CPT/HCPCS: 77063; 77067

== ENCOUNTER 2023-03-31 13:59 | Emergency (ER) | payer OTHER, SELFPAY ==
[2023-03-31 14:10] VITALS: BP 104/64; PULSE 68; RESP 20; TEMP 36.6; O2SAT 95; BMI 21.2
--- NOTE | 2023-03-31 14:17 | EXP.UTC ---
Discharge Plan Disposition Patient Disposition: Home, Self-Care Condition: Good Prescriptions Prescriptions: New azithromycin [Zithromax] 250 mg tablet 250 mg PO UD DOSE PK Qty: 6 0RF Rx Instructions: Take two (2) tablets today, then one (1) tablet days #2 thru #5 benzonatate [benzonatate] 100 mg capsule 100 mg PO TIDP PRN (Reason: Cough) Qty: 30 0RF methylprednisolone 4 mg Tablets,Dose Pack 4 mg PO DIRECTED Qty: 21 0RF No Action clopidogrel 75 MG tablet 75 mg PO DAILY naproxen 500 MG tablet 500 mg PO BID levothyroxine 112 MCG tablet 112 mcg PO DAILY rosuvastatin 20 MG tablet 20 mg PO DAILY aspirin 81 MG tablet,delayed release (DR/EC) 81 mg PO DAILY omeprazole 20 mg Capsule,Delayed Release(Dr/Ec) 20 mg PO DAILY Referrals Follow up/Referrals: Tereso Jaeger MD [Primary Care Provider] - See instructions Activity Restrictions/Add. Instructions Additional Instructions/Restrictions: Drink plenty of fluids. Take tylenol or ibuprofen for pain or fever. Take the medications as directed. Follow up with your regular doctor. GO TO THE ER FOR ANY WORSENING SYMPTOMS Clinical Impressions Clinical Impression: Acute bronchitis Instructions Patient Instructions: Acute Bronchitis, DI for Acute Bronchitis Discharge ED Provider: Gilmar Maloney [facility] [place] General Stated complaint: cough Time Seen by Provider: 03/31/23 14:17 History of Present Illness Provider Complaint: She states that for the past 2 weeks he has had sinus congestion and chest congestion. He states that his symptoms are worsening. Related Data Home Medications Medication Instructions Recorded Confirmed aspirin 81 mg tablet,delayed 81 mg PO DAILY heart health 03/15/20 03/31/23 release clopidogrel 75 mg tablet 75 mg PO DAILY stents 03/15/20 03/31/23 levothyroxine 112 mcg tablet 112 mcg PO DAILY thyroid 03/15/20 03/31/23 naproxen 500 mg tablet 500 mg PO BID Pain 03/15/20 03/31/23 rosuvastatin 20 mg tablet 20 mg PO DAILY Cholesterol 03/15/20 03/31/23 omeprazole 20 mg capsule,delayed 20 mg PO DAILY 03/31/23 03/31/23 release Previous Rx's Medication Instructions Recorded azithromycin 250 mg tablet 250 mg PO UD DOSE PK #6 tabs 03/31/23 (Zithromax) benzonatate 100 mg capsule 100 mg PO TIDP PRN Cough #30 caps 03/31/23 methylprednisolone 4 mg tablets in 4 mg PO DIRECTED #21 tabs 03/31/23 a dose pack Allergies Allergy/AdvReac Type Severity Reaction Status Date / Time No Known Allergies Allergy Verified 02/18/23 10:18 [facility] Disclaimer: The information contained in this section may have been updated after the patient was seen, as this information can be updated by other users. Medical History Cancer History of gastroesophageal reflux (GERD) Hx of rotator cuff tear Hyperlipidemia Hyperlipidemia Hypertension Hypothyroid Menopause Surgical History History of colonoscopy History of hysterectomy Hx of shoulder replacement Family History Mother Family history of cancer Sister Family history of myocardial infarction Family history of hypothyroidism Social History Smoking Status: Current every day smoker tobacco type: cigarettes packs per day: 1 alcohol intake: never substance use type: denies use current occupational status: employed Travel in the last 8 weeks: None household members: none housing: house current occupation: [employer] current occupational exposures/hazards: No caffeine: Yes ROS Obtained: Yes All systems reviewed & no additional complaints except as documented Constitutional Constitutional: Reports poor appetite Eyes Eyes: Reports system reviewed and no additional complain
[2023-03-31 14:33] VITALS: BP 104/64; PULSE 68; RESP 20; TEMP 36.6; O2SAT 95
== END 2023-03-31 14:57 | disposition home or self-care (01) ==
PROVIDERS: Emergency Provider Nurse Practitioner Family; PCP Family Medicine
DX: J20.9 Acute bronchitis, unspecified (principal); R05.9 Cough, unspecified; F17.210 Nicotine dependence, cigarettes, uncomplicated; I10 Essential (primary) hypertension; E78.5 Hyperlipidemia, unspecified; E03.9 Hypothyroidism, unspecified; K21.9 Gastro-esophageal reflux disease without esophagitis
CPT/HCPCS: 99212; 99214; G0463

== ENCOUNTER 2023-07-11 14:35 | Emergency (ER) | payer OTHER, SELFPAY ==
--- NOTE | 2023-07-11 14:39 | XR_ITS ---
FINAL REPORT CLINICAL HISTORY: FALL COMPARISON: None FINDINGS: AP, lateral and oblique views of the left knee were obtained. There is no prior exam for comparison. There is no acute osseous abnormality of the left knee. Mild osteopenia is present. The joint space is preserved. The soft tissues are normal. There is no joint effusion. IMPRESSION: No acute osseous abnormality of the left knee. Reviewed, Interpreted and Dictated by Alyx Eller MD Transcribed by Precious Arredondo Authenticated and [facility]
[2023-07-11 15:00] VITALS: BP 122/46; PULSE 65; RESP 18; TEMP 37; O2SAT 97; BMI 31.8
--- NOTE | 2023-07-11 15:20 | ED_ITS ---
Discharge Plan Disposition Patient Disposition: Home, Self-Care Condition: Good Prescriptions Prescriptions: No Action clopidogrel 75 MG tablet 75 mg PO DAILY naproxen 500 MG tablet 500 mg PO BID levothyroxine 112 MCG tablet 112 mcg PO DAILY rosuvastatin 20 MG tablet 20 mg PO DAILY aspirin 81 MG tablet,delayed release (DR/EC) 81 mg PO DAILY omeprazole 20 mg Capsule,Delayed Release(Dr/Ec) 20 mg PO DAILY Referrals Follow up/Referrals: Tereso Jaeger MD [Primary Care Provider] - See instructions Activity Restrictions/Add. Instructions Additional Instructions/Restrictions: *weight bearing as tolerated *RICE, Rest the extremity, Ice 15-20 minutes 3-4 times daily, Compress- wear the gene wrap as discussed as much as possible to help reduce swelling and pain, Elevate the extremity when at rest *Gene wrap is for support and help control swelling, use it except in the shower. Be sure that is not to tight but not to loose either *Elevate when resting? *Ibuprofen 600-800mg every 6-8 hours as needed for pain an inflammation. If need something more can take Tylenol in between doses of Ibuprofen to help Immediately follow up with your family doctor for new or worsening of symptoms, or no noticeable improvement over the next 3-5 days Clinical Impressions Clinical Impression: Fall Qualifiers: Encounter type: initial encounter Qualified Code(s): W19.XXXA - Unspecified fall, initial encounter Instructions Patient Instructions: How To Perform RICE (Rest, Ice, Compress, Elevate), DI for Abrasion Discharge ED Provider: Ellie Mercedes [facility] General Stated complaint: AO, pain in left knee Mode of Arrival: Ambulatory Source of Information: Patient Limitations: No Limitations Time Seen by Provider: 07/11/23 15:20 Description of Symptoms (Recalled from Triage Doc. by RN): Pt was carrying a car part and tripped over a car part and hurt left knee. HEENT Symptoms (Recalled from RN notes): No Resp Symptoms (Recalled from RN notes): No Skin Symptoms (Recalled from RN notes): No MS Symptoms (Recalled from RN notes): Yes Functional Status (Recalled from RN notes): n/a History of Present Illness Provider Complaint: Patient states that she had her hands full packing stuff through the yard when she tripped over the dog and landed on her left knee States that her knee is scratched up and she was having pain when she would walk on it so family wanted her to come in and get it checked Denies any other injury Related Data Home Medications Medication Instructions Recorded Confirmed aspirin 81 mg tablet,delayed 81 mg PO DAILY heart health 03/15/20 07/11/23 release clopidogrel 75 mg tablet 75 mg PO DAILY stents 03/15/20 07/11/23 levothyroxine 112 mcg tablet 112 mcg PO DAILY thyroid 03/15/20 07/11/23 naproxen 500 mg tablet 500 mg PO BID Pain 03/15/20 07/11/23 rosuvastatin 20 mg tablet 20 mg PO DAILY Cholesterol 03/15/20 07/11/23 omeprazole 20 mg capsule,delayed 20 mg PO DAILY 03/31/23 07/11/23 release Allergies Allergy/AdvReac Type Severity Reaction Status Date / Time No Known Allergies Allergy Verified 07/11/23 15:16 Worker's Comp Is this a Worker's Comp case?: No [facility] Disclaimer: The information contained in this section may have been updated after the patient was seen, as this information can be updated by other users. Medical History Cancer History of gastroesophageal reflux (GERD) Hx of rotator cuff tear Hyperlipidemia Hyperlipidemia Hypertension Hypothyroid Menopause Surgical History History of colonoscopy History of hysterectomy Hx of shoulder replacement Family History Mother Family history of cancer Sister Family history of myocardial infarction Family history of hypothyroidism Social History Smoking Status: Current every day smoker tobacco type: cigarettes packs per day: 1 alcohol intake: never substance use type: denies use current occupational status: employed Travel in the last 8 weeks: None household members: none housing: house current occupation: [employer] current occupational exposures/hazards: No caffeine: Yes ROS Obtained: Yes All systems reviewed & no additional complaints except as documented and Yes Systems reviewed as appropriate & no additional complaints except as documented Constitutional Constitutional: Reports system reviewed and no additional complaints, except as documented and Reports as per HPI ENT Ears, Nose, Mouth, and Throat: Reports system reviewed and no additional complaints, except as documented and Reports as per HPI Cardiovascular Cardiovascular: Reports system reviewed and no additional complaints, except as documented and Reports as per HPI Respiratory Respiratory: Reports system reviewed and no additional complaints, except as documented and Reports as per HPI Musculoskeletal Musculoskeletal: Reports system reviewed and no additional complaints, except as documented and Reports as per HPI Comments: pain and abrasions to left knee after falling earlier today Physical Exam General General appearance: alert and in no apparent distress ENT ENT exam: Present mucous membranes moist Respiratory Respiratory exam: Present normal lung sounds bilaterally; Absent respiratory distress or wheezes Cardiovascular Cardiovascular exam: Present regular rate, normal rhythm and normal heart sounds Expanded Lower Extremity Exam Left: Knee exam: Present tenderness, swelling and abrasion Lower leg exam: Present abrasion Ankle exam: Present normal inspection Foot/toe exam: Present normal inspection Gait: observed and limited by pain Neurological Exam Neurological exam: Present alert, oriented X3 and normal gait Medical Decision Making Sammy Inquiry Pt receiving controlled substance: No Sammy was queried for this patient: No Vital Signs: 07/11/23 15:00 Temperature 98.6 F Temperature Source Oral Pulse Rate [Right Radial] 65 Respiratory Rate 18 Blood Pressure [Right Arm] 122/46 L Blood Pressure Mean [Right Arm] 71 Blood Pressure Source [Right Arm] Automatic Cuff Blood Pressure Position [Right Arm] Sitting 02 Sat by Pulse Oximetry 97 Oxygen Delivery Method Room Air Orders (Tests/Meds): ORDERS Category Date Time Status XR knee LT 3V Stat Exams 07/11/23 14:39 Taken Radiology Data #1: Image(s): Knee Image Reviewed: Yes I have reviewed radiologist's interpretation no acute osseous abnormality of the left knee
[2023-07-11 16:37] VITALS: BP 122/46; PULSE 65; RESP 18; TEMP 37; O2SAT 97
== END 2023-07-11 16:37 | disposition home or self-care (01) ==
PROVIDERS: Emergency Provider Nurse Practitioner; PCP Family Medicine
DX: M25.562 Pain in left knee (principal); F17.210 Nicotine dependence, cigarettes, uncomplicated; I10 Essential (primary) hypertension; E78.5 Hyperlipidemia, unspecified; E03.9 Hypothyroidism, unspecified; K21.9 Gastro-esophageal reflux disease without esophagitis; W01.198A Fall on same level from slipping, tripping and stumbling with subsequent striking against other object, initial encounter
CPT/HCPCS: 73562; 99212; 99214; G0463

== ENCOUNTER 2024-03-13 12:39 | Outpatient (CLI) | payer OTHER, SELFPAY ==
--- NOTE | 2024-03-13 12:45 | MM_ITS ---
PROCEDURE INFORMATION: Exam: MG Bilateral Screening 3D Mammography Exam date and time: 03/13/2024 12:42 PM Age: 63 years old Clinical indication: Screening examination TECHNIQUE: Imaging protocol: Bilateral Screening tomosynthesis and 2D mammography including computer-aided detection (CAD) when performed. COMPARISON: 1. MG MM DIG SCREENING MAMM BI W/CAD 03/12/2023 10:43 AM 2. MG MM DIG SCREENING MAMM BI W/CAD 03/09/2022 4:37 PM FINDINGS: MAMMOGRAPHY: Breast composition: There are scattered areas of fibroglandular density. Mass: No suspicious masses. Architectural distortion: None. Calcifications: No suspicious calcifications. Asymmetric density: None. Skin thickening: None. Axillary adenopathy: None. IMPRESSION: No mammographic evidence of malignancy. Annual screening is recommended unless otherwise clinically indicated. ASSESSMENT: BI-RADS Category 1: Negative.
== END 2024-03-13 23:59 | disposition home or self-care (01) ==
LOC: RAD 12:39
PROVIDERS: PCP Nurse Practitioner; Visit Provider Nurse Practitioner
DX: Z12.31 Encounter for screening mammogram for malignant neoplasm of breast (principal)
CPT/HCPCS: 77063; 77067

== ENCOUNTER 2024-07-22 06:03 | Day surgery (SDC) | payer OTHER, SELFPAY ==
--- NOTE | 2024-07-21 11:43 | SUR.PREOP ---
11:35am- call placed to [facility] cards for cards clearance for patient. left VM.
--- NOTE | 2024-07-21 12:28 | SUR.PREOP ---
1220-Ok per Ward Solomon [employer], no clearance needed.
[2024-07-22 06:18] VITALS: BP 121/66; PULSE 72; RESP 18; TEMP 36.1; O2SAT 94; BMI 21.9
[2024-07-22] MEDS: LACTATED RINGERS 1000ML 1,000 ML 50 ML IV (06:28)
--- NOTE | 2024-07-22 07:02 | EXP.ANES.CKL ---
[facility] Disclaimer: The information contained in this section may have been updated after the patient was seen, as this information can be updated by other users. Medical History Menopause History of gastroesophageal reflux (GERD) Hypothyroid Hyperlipidemia Cancer Hyperlipidemia Hx of rotator cuff tear Surgical History History of colonoscopy Hx of shoulder replacement History of hysterectomy Family History Mother Family history of cancer Sister Family history of myocardial infarction Family history of hypothyroidism Social History (Updated 07/22/24 @ 06:20 by Jackie Monet RN) Smoking Status: Current every day smoker tobacco type: cigarettes packs per day: 1 alcohol intake: never substance use type: denies use current occupational status: employed and retired Travel in the last 8 weeks: None household members: none housing: house current occupation: thony current occupational exposures/hazards: No caffeine: Yes Have you lived/traveled outside [place] in past 30 days?: No Contact w/someone who lives/traveled outside US past 30 days?: No Exposure to someone with infectious disease in past 14 days?: No Do you have a fever (greater than 100.4 F or 38 C)?: No Have you tested positive for COVID-19: No Exposed to someone with COVID-19 in past 14 days?: No Do you have a sore throat?: No Do you have a cough?: No Do you have any weakness?: No Are you experiencing any nausea/vomitting?: No Do you have any diarrhea?: No Are you experiencing any unusual bleeding?: No Do you have any muscle aches/pain?: No Do you have any abdominal pain?: No Are you experiencing loss of taste or smell?: No [facility] Anesthesia Checklist Patient Identification Patient Identification: Arm Band and Family Structural Data Admitted From: Home Planned Operative Procedure/s: Colonoscopy Consent for Planned Operative Procedure(s) Verified: Yes Verified Documents: Surgical Consent and History and Physical NPO Status Verified Time NPO: 00:00 Additional verifications Patient : No Anesthesia Reactions: No Hx Blood Transfusions: No Blood Transfusion Reaction: No Cephalosporin Allergy: No Previous Colonoscopy: Yes Airway Assessment Mallampati Score:: Class I C-Spine Mobility Assessed: Yes TMJ Mobility Assessed: Yes Dentition: Edentulous Neurological Assessment Level of Consciousness: Awake, Alert, Appropriate and Follows Commands Hx Seizures: No Numbness or tingling in extremities: No Anesthesia Plan Anesthesia Risk discussed: Yes ASA Class: II Anesthesia Type: MAC
--- NOTE | 2024-07-22 07:17 | HMH.SCOPE ---
Procedure: Date: 07/22/24 Patient Date of :: 1960 Procedure Performed:: Colonoscopy with polypectomy Indications:: Screening Note: She has a history of perineal squamous cell carcinoma and has undergone excision and follow-up examination under anesthesia with biopsy on multiple occasions. Her last colonoscopy April 2021 was complicated by moderate prep and fairly severe tortuosity. Scattered diverticulosis noted. A follow-up barium enema revealed no significant abnormality. Performing Provider:: Melchor Boone MD Referring Provider:: . Sedation:: Monitored anesthesia care Procedure:: After informed consent was obtained the patient was taken to the endoscopy suite. Sedation ensued after the patient was transferred to the left lateral decubitus position. Pulse, blood pressure, and oxygen saturation were monitored throughout the procedure. Digital rectal exam revealed no significant abnormality. The colonoscope was placed in position. The entire colon was evaluated. The colonoscope was carefully removed and the patient was transferred to recovery in stable condition. Please see findings and specimens below for detail. Findings:: Bowel preparation fair Fairly profound tortuosity Significant spasticity Polyp at 12 cm Specimens:: Polyp at 12 cm (cold snare) Recommendations:: Timing of repeat colonoscopy is pending pathology but will likely be around 3-5 years. Complications:: No immediate Estimated blood obtained (mL): 1 Colonoscopy Component Colonoscopy Component Was a colonoscopy performed during today's procedure?: Yes Recommended follow up colonoscopy of at least 10 years?: No If no, follow up colonoscopy recommended in ___ years?: (See above) Reason for not recommending >/= 10 yr follow-up interval?: (See above)
[2024-07-22 07:23] VITALS: O2SAT 98
[2024-07-22 07:54] VITALS: BP 87/59; PULSE 83; RESP 20; TEMP 36.1; O2SAT 94
[2024-07-22 08:04] VITALS: BP 97/59; PULSE 71; RESP 20; O2SAT 94
[2024-07-22 08:14] VITALS: BP 113/87; PULSE 84; RESP 20; O2SAT 94
[2024-07-22 08:24] VITALS: BP 117/60; PULSE 81; RESP 20; O2SAT 94
== END 2024-07-22 08:26 | disposition home or self-care (01) ==
PROVIDERS: PCP Nurse Practitioner; Visit Provider Surgery
PROC: 0DJD8ZZ Inspection of Lower Intestinal Tract, Via Natural or Artificial Opening Endoscopic (ICD-10-PCS; CPT 45385; principal; 2024-07-22 07:30)
DX: K63.5 Polyp of colon (principal); Z12.11 Encounter for screening for malignant neoplasm of colon; Z85.828 Personal history of other malignant neoplasm of skin; Z72.0 Tobacco use
CPT/HCPCS: 45385; J7120

== ENCOUNTER 2025-03-26 13:05 | Outpatient (CLI) | payer MEDICARE, OTHER, SELFPAY ==
--- NOTE | 2025-03-26 13:08 | MM_ITS ---
PROCEDURE INFORMATION: Exam: MG Bilateral Screening 3D Mammography Exam date and time: 03/26/2025 1:21 PM Age: 65 years old Clinical indication: Screening examination TECHNIQUE: Imaging protocol: Bilateral Screening tomosynthesis and 2D mammography including computer-aided detection (CAD) when performed. COMPARISON: 1. MG MM DIG SCREENING MAMM BI W/CAD 03/13/2024 12:42 PM 2. MG MM DIG SCREENING MAMM BI W/CAD 03/12/2023 10:43 AM FINDINGS: MAMMOGRAPHY: Breast composition: There are scattered areas of fibroglandular density. Mass: No suspicious masses. Architectural distortion: None. Calcifications: No suspicious calcifications. Asymmetric density: None. Skin thickening: None. Axillary adenopathy: None. IMPRESSION: No mammographic evidence of malignancy. Annual screening is recommended unless otherwise clinically indicated. ASSESSMENT: BI-RADS Category 1: Negative.
--- OUTSIDE RECORDS SUMMARY | 2025-03-26 13:08 | XMS_ITS | Clinical Summary ---
Author Organization [facility] Address [address] [place] [address] Care Team Providers Care Computer Methods Analyst Name Role Phone Irma Zarco APRN Primary Care Provider [phone] Allergies No known active allergies Medications rosuvastatin (CRESTOR) 20 MG tablet Take 20 mg by mouth Daily. Active levothyroxine (SYNTHROID, LEVOTHROID) 112 MCG tablet Take 112 mcg by mouth Daily. Active omeprazole (priLOSEC) 20 MG capsule Take 20 mg by mouth Daily. Active aspirin 81 MG EC tablet Take 81 mg by mouth Daily. Last dose 6--20 per patient Active naproxen (NAPROSYN) 500 MG tablet Take 500 mg by mouth 2 (Two) Times a Day With Meals. Last dose 6-1-20 per patient Active clopidogrel (PLAVIX) 75 MG tablet Take 1 tablet by mouth Daily. Resume 10/22/19 0 Active docusate sodium 100 MG capsule Take 100 mg by mouth 2 (Two) Times a Day As Needed for Constipation. 60 each 0 Active Ropivacine HCl-NaCl (NAROPIN)Indica tions:Acute Pain 12 mg/hr by Peripheral Nerve route Continuous. Indications: Acute Pain 0 Active oxyCODONE-aceta minophen (PERCOCET) 7.5-325 MG per tabletIndicatio ns:S/P reverse total shoulder arthroplasty, right Take 1 tablet by mouth Every 4 (Four) Hours As Needed for Moderate Pain . 30 tablet 0 Active Active Problems Problem Noted Date Diagnosed Date Acute postoperative pain 10/21/2019 Leukocytosis, mild, likely reactive 10/21/2019 Acute blood loss anemia, mild, asymptomatic 01/2020 Shoulder arthritis 10/20/2019 S/P reverse total shoulder arthroplasty, right 0 10/20/2019 Hypothyroid 10/20/2019 Hyperlipidemia 10/20/2019 Tobacco use 10/20/2019 PVD (peripheral vascular disease) 10/20/2019 Social History Tobacco Use Types Packs/Day Years Used Date Smoking Tobacco: Every Day Cigarettes 1 45 Smokeless Tobacco: Never Tobacco Cessation:Ready to Q uit: No; Counseling Given: Yes Alcohol Use Standard Drinks/Week Comments Never 0 (1 standard drink = 0.6 oz pur e alcohol) AUDIT-C Answer Date Recorded Q1: How often do you have a drink containing alc ohol? Never 10/17/2019 Average Number of Drinks Not on file 020 Frequency of Binge Drinking Not on file 09/2019 Abuse Screen Answer Date Recorded Unsafe at Home or Work/School Not on file Feels Threatened by Someone? Not on file 04/2023 Does Anyone Keep You from Co ntacting Others or Doint Things Outside the Home? Not on file 02/22/2023 Physical Sign of Abuse Present Not on file 1 Housing Stability Answer Date Recorded Current Living Arrangements Not on file 02/11 Potentially Unsafe Housing Conditions Not on eligio e 02/22/2023 Family and Community Support Answer Collin e Recorded Help with Day-to-Day Activities Not on file 02/22/2023 Lonely or Isolated Not on file 02/22/2023 Employment Answer Date Recorded Do you want help finding or keeping work or a da b? Not on file 02/22/2023 Disabilities Answer Date Recorded Concentrating, Remembering, or Making Decisions Difficulty Not on file 02/22/2023 Doing Errands Independently Difficulty Not on fi le 02/22/2023 Education Answer Date Recorded Help with school or training? Not on file Preferred Language Not on file 02/22/2023 Comments No Sex and Gender Information Value Date Recorded Sex Assigned at Not on file Legal Sex Female 11:26 AM EDT Gender Identity Not on file Sexual Orientation Not on file Last Filed Vital Signs Vital Sign Reading Time Taken Comments Blood Pressure 121/74 10/21/2019 7:15 AM EDT Pulse 68 10/21/2019 7:15 AM EDT Temperature 36.7 C (98 F) 10/21/2019 7:15 AM EDT Respiratory Rate 16 10/21/2019 7:15 AM EDT Oxygen Saturation 92% 10/21/2019 7:15 AM EDT Inhaled Oxygen Concentration - - Weight 58 kg (127 lb 13.9 oz) 10/20/2019 6:25 AM EDT Height 162.6 cm (5' 4 ) 10/20/2019 6:25 AM EDT Body Mass Index 21.95 10/20/2019 6:25 AM EDT Plan of Treatment Health Maintenance Due Date Last Done Comments Annual Gynecologic Pelvic and Breast Exam 1960 LIPID PANEL 1960 TDAP/TD VACCINES (1 - Tdap) 1979 MAMMOGRAM 2000 COLOGUARD 2005 COLON CANCER SCREENING 5 YEAR SIGMOIDOSCOPY 2005 COLONOSCOPY [address]CER SCREENING [address] COLONOGRAPHY 2005 FECAL OCCULT BLOOD TEST 2005 FIT Testing (1 year) 2005 Pneumococcal Vaccine 50+ (1 of 1 - PCV) 2010 ZOSTER VACCINE (1 of 2) 2010 ANNUAL PHYSICAL 10/15/2019 HEPATITIS C SCREENING 10/15/2019 INFLUENZA VACCINE 12/12/2024 Medical Devices Implanted Type Area Dog Hair Clipper Device Identifier Shelf Expiration Date Model / Serial / Lot Cup Sut Univers Revers 36 Ntrl - [id number] Implanted:Qty: 1 on 10/20/2019 by Last Connell MD at [facility] Implant Right: Shoulder ARTHREX 02/11/2024 [id number] [facility] / / [id number] Stem Hum [employer] Revers Sz5 - [id number] Implanted:Qty: 1 on 10/20/2019 by Last Connell MD at [facility] Implant Right: Shoulder ARTHREX 07/11/2021 [id number] / / [id number] Totl Shldr Rev S4 - [id number] Implanted:Qty: 1 on 10/20/2019 by Last Connell MD at [facility] Implant Right: Shoulder ARTHREX CAPREVSHL [id number] / / [id number] Centrl Nestor [employer] Revers 20mm - [id number] Implanted:Qty: 1 on 10/20/2019 by Last Connell MD at [facility] Implant Right: Shoulder ARTHREX 01/12/2024 [id number] / / [id number] Baseplt Nestor [employer] Revers Modular 24mm - [id number] Implanted:Qty: 1 on 10/20/2019 by Last Connell MD at [facility] Implant Right: Shoulder ARTHREX 12/12/2023 [id number] / / [id number] Scrw Lk Nestor Univers Revers Periph 5.5x16mm - [id number] Implanted:Qty: 1 on 10/20/2019 by Last Connell MD at [facility] Implant Right: Shoulder ARTHREX 01/12/2024 [id number] / / [id number] Scrw Lk Nestor [employer] Revers Periph 5.5x24mm - [id number] Implanted:Qty: 1 on 10/20/2019 by Last Connell MD at [facility] Implant Right: Shoulder ARTHREX 12/12/2023 [id number] / / [id number] Scrw Lk Nestor [employer] Revers Periph 5.5x16mm - [id number] Implanted:Qty: 1 on 10/20/2019 by Last Connell MD at [facility] Implant Right: Shoulder ARTHREX 01/05/2024 [id number] / / [id number] Scrw Nl Nestor [employer] Revers Periph 4.5x36mm - [id number] Implanted:Qty: 1 on 10/20/2019 by Last Connell MD at [facility] Implant Right: Shoulder ARTHREX 05/13/2023 [id number] / / [id number] [employer] Revers Modular L/24 36pls4 - [id number] Implanted:Qty: 1 on 10/20/2019 by Last Connell MD at [facility] Implant Right: Shoulder ARTHREX 12/12/2023 [id number] 6LAT / / [id number] Liner Hum Univers Revers Sm 36 Pls3mm - [id number] Implanted:Qty: 1 on 10/20/2019 by Last Connell MD at [facility] Implant Right: Shoulder ARTHREX 12/12/2023 [id number] / / [id number] Iliac Stents Description:BILATERAL Insurance [facility] PPO Advance Directives * CPR (Attempt to Resuscitate) (Latest Code Status on File) Date Activated Date Inactivated Comments 10/20/2019 2:47 PM 10/21/2019 2:26 PM Question Answer Comments Code Status (Patient has no pulse and is not breathing): CPR (Attempt to Resuscitate) Medical Interventions (Patie nt has pulse or is breathing): Full Level Of Support Discussed With: Patient Care Teams Computer Methods Analyst Relationship Specialty Start Date End Date Irma Zarco APRN PCP - General Family Medicine 10/17/19
--- OUTSIDE RECORDS SUMMARY | 2025-03-26 13:08 | XMS_ITS | Clinical Summary ---
Author Organization [facility] Address [address] [place] [address] Care Team Providers Care Balance Sheet Analyst Name Role Phone DelgadoAlycia spann Nettie MURDOCK Primary Care Provider [phone] Allergies No known active allergies Medications aspirin 81 MG EC tablet Take 81 mg by mouth 1 (one) time each day. Active clopidogrel (Plavix) 75 MG tablet Take 75 mg by mouth 1 (one) time each day. 10/22/2020 Active levothyroxine (Synthroid, Levoxyl) 112 MCG tablet Take 112 mcg by mouth 1 (one) time each day. 05/22/2018 Active naproxen (Naprosyn) 500 MG tablet Take 500 mg by mouth twice a day. Active omeprazole (PriLOSEC) [address] capsule Take 20 mg by mouth 1 (one) time each day. 05/22/2018 Active rosuvastatin (Crestor) 20 MG tablet Take 20 mg by mouth 1 (one) time each day. 05/22/2018 Active Active Problems Problem Noted Date Diagnosed Date Tobacco use disorder 07/04/2021 Complex cyst of left ovary 11/03/2020 Assessment & Plan (11/03/2020 6:23 PM EDT): Cyst is fairly simple. Low risk of malignancy. Reviewed imaging with patient and recommend surveillance. RTC in 6 months with TVS. 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 No evidence of recurrence on recent CT scan. Hypothyroid 10/20/2019 Assessment & Plan (11/03/2020 6:20 PM EDT): Controlled with Synthroid. PVD (peripheral vascular disease) 10/20/2019 Assessment & Plan (11/03/2020 6:21 PM EDT): LE stents placed about 3 years ago. Currently on Plavix and low dose ASA. Tobacco use 10/20/2019 Assessment & Plan (11/03/2020 6:21 PM EDT): Declines smoking cessation. Resolved Problems Problem Noted Date Diagnosed Date Resolved Date Second hand smoke exposure 07/04/2021 0 02/01/2025 Recent unexplained weight loss 11/03/2020 02/01/2025 Assessment & Plan (11/03/2020 6:22 PM EDT): Recent loss of 25 pounds. Given smoking history will screening CT of chest. Family History Medical History Relation Name Comments Anesthesia problems Neg Hx Malig Hyperthermia Neg Hx Social History Tobacco Use Types Packs/Day Years Used Date Smoking Tobacco: Every Day Cigarettes 1 40 Smokeless Tobacco: Never Tobacco Cessation:Ready to Q uit: Not Asked; Counseling Given: Not Answered Alcohol Use Standard Drinks/Week Comments Never 0 (1 standard drink = 0.6 oz pur e alcohol) PHQ-2 Answer Date Recorded Patient Health Questionnaire-2 Score 0 07/07/2022 PHQ-2A Answer Date Recorded Patient Health Questionnaire-2 Score 0 07/07/2022 Education Answer Date Recorded What is the highest level of school you have completed or the highest degree you have received? High school graduate 11/01/2020 Comments No Sex and Gender Information Value Date Recorded Sex Assigned at Not on file Legal Sex Female 8:51 PM EDT Gender Identity Not on file Sexual Orientation Not on file Last Filed Vital Signs Vital Sign Reading Time Taken Comments Blood Pressure 128/84 07/07/2022 8:36 AM EST Pulse 71 07/07/2022 8:36 AM EST Temperature 36.4 C (97.6 F) 07/07/2022 8:36 AM EST Respiratory Rate 16 07/07/2022 8:36 AM EST Oxygen Saturation 95% 07/07/2022 8:36 AM EST Inhaled Oxygen Concentration - - Weight 49.4 kg (108 lb 14.5 oz) 07/07/2022 8:36 AM EST Height 157.5 cm (5' 2 ) 07/07/2022 8:36 AM EST Body Mass Index 19.92 07/07/2022 8:36 AM EST Plan of Treatment Health Maintenance Due Date Last Done Comments [facility]-Bone Density Scan 1960 [facility]-Hepatitis C Screening 1960 [facility]-/Child/Adol SDOH Screenings 1960 [id number] Vaccine (#1) 1965 [facility]- SDOH Screenings 1978 [facility]-Adult SDOH Screenings 1978 [facility]-DTaP,Tdap,and Td Vaccine s (1 - Tdap) 1979 [facility]-Pneumococcal Vaccine: 50 + Years (1 of 2 - PCV) 1979 [facility]-Zoster Vaccines (1 of 2) 1979 CT Colonography 2005 Colonoscopy 2005 FIT-DNA 2005 FIT 2005 FOBT 2005 Sigmoidoscopy 2005 [facility]-Colorectal Cancer Screening 2005 Lung Cancer Screening Shared Decision Making 2010 [facility]-Breast Cancer Screening 10/06/201709/12, 12/12/2013 [facility]-RSV Vaccine: 60+ Years o r (1 - Risk 60-74 years 1-dose series) 2020 [facility]-Lung Cancer Screening 05/05/20222020, 12/16/2020 [facility]-Depression Screening 07/07/2023 023, 12/28/2021 [facility]-Influenza Vaccine (#1) 2025 HPV Vaccines Aged Out No longer eligi ble based on patient's age to complete this topic [facility]-HIB Vaccines Aged Out No longer e ligible based on patient's age to complete this topic [facility]-Hepatitis A Vaccines Aged Out No longer eligible based on patient's age to complete this topic [facility]-IPV Vaccines Aged Out No longer e ligible based on patient's age to complete this topic [facility]-Rotavirus Vaccines Aged Out No lo nger eligible based on patient's age to complete this topic Procedures Procedure Name Priority Date/Time Associated Diagnosis Comments CT CHEST W IV CONTRAST STAT 9:07 AM EST Pulmonary nodules MAMMOGRAPHY BREAST SCREENING TOMOSYNTHESIS BILATERAL Routine 10/07/2015 12:00 PM EDT from Last 3 Months or Most Recently Relevant to Health Maintenance Results * CT Chest w IV Contrast (05/05/2021 9:07 AM EST) Anatomical Region Laterality Modality Chest Computed Tomogra phy Impressions 05/05/2021 11:19 AM EST Slight interval increase in size of right lower lobe nodule. CRITICAL RESULT: No. COMMUNICATION: Per this written report. By electronically signing this report, I, the attending physician, attest that I have personally reviewed the images/data for the above examination(s) and agree with the final edited report. Signed by Fabiola Godoy on 05/05/2021 11:19 AM Narrative 05/05/2021 11:19 AM EST Exam/Procedure: CT CHEST W IV CONTRAST ordered by MAKAYLA DEAN, [id number] CLINICAL INDICATION: Lung nodule, < 6mm, high cancer risk TECHNIQUE: Multiple CT helical images were obtained from thoracic inlet through upper abdomen with administration of IV contrast. Omnipaque 300, 75 mL. Total DLP (Dose-Length Product): 123.42 mGy.cm. Please note: The reported value represents the total of one or more individual components during the CT acquisition on this date and at this time, and as such, the same value may appear in more than one CT report depending on the interpreting/reporting physicians. COMPARISON: CT chest, December 16, 2020 FINDINGS: Mediastinum and Pleura: Similar right thyroid gland enlargement compared to prior. No mediastinal or hilar adenopathy. No pleural or pericardial effusion. Multivessel coronary calcification. Mild aortic calcification. Lungs: Mild bilateral upper lobe predominant centrilobular emphysema. Interval slight enlargement of right lower lobe pulmonary nodule measuring 6 mm, previously 5 mm, (series 4, image 276). Stable left lower lobe pulmonary nodule measuring approximately 5 mm, (series 4, image 308). No new suspicious pulmonary nodules. Upper Abdomen: Stable mild left adrenal gland thickening. No suspicious lesions in the remaining partially visualized upper abdomen. Musculoskeletal: No suspicious lytic or sclerotic lesion. Procedure Note Fabiola Godoy MD - 05/05/2021 Exam/Procedure: CT CHEST W IV CONTRAST ordered by MAKAYLA DEAN,[id number] CLINICAL INDICATION: Lung nodule, < 6mm, high cancer risk TECHNIQUE: Multiple CT helical images were obtained from thoracic inlet through upperabdomen with administration of IV contrast. Omnipaque 300, 75 mL. Total DLP (Dose-Length Product): 123.42 mGy.cm. Please note: The reportedvalue represents the total of one or more individual components during theCT acquisition on this date and at this time, and as such, the same valuemay appear in more than one CT report depending on theinterpreting/reporting physicians. COMPARISON: CT chest, December 16, 2020 FINDINGS: Mediastinum and Pleura: Similar right thyroid gland enlargement comparedto prior. No mediastinal or hilar adenopathy. No pleural or pericardialeffusion. Multivessel coronary calcification. Mild aortic calcification. Lungs: Mild bilateral upper lobe predominant centrilobular emphysema.Interval slight enlargement of right lower lobe pulmonary nodule measuring6 mm, previously 5 mm, (series 4, image 276). Stable left lower lobepulmonary nodule measuring approximately 5 mm, (series 4, image 308). Nonew suspicious pulmonary nodules. Upper Abdomen: Stable mild left adrenal gland thickening. No suspiciouslesions in the remaining partially visualized upper abdomen. Musculoskeletal: No suspicious lytic or sclerotic lesion. IMPRESSION: Slight interval increase in size of right lower lobe nodule. CRITICAL RESULT: No. COMMUNICATION: Per this written report. By electronically signing this report, I, the attending physician, attestthat I have personally reviewed the images/data for the aboveexamination(s) and agree with the final edited report. Signed by Fabiola Godoy on 05/05/2021 11:19 AM us Makayla Dean MD IMG CT PROCEDURES Final Resul t * Mammography Breast Screening Tomosynthesis Bilateral (10/07/2015 12:00 PM EDT) Anatomical Region Laterality Modality Breast Bilateral Mammography Impressions 10/07/2015 4:23 PM EDT BI-RADS Assessment Category 1: Negative. RECOMMENDATION: Routine screening mammogram in 1 year. COMMUNICATION: The results and recommendations will be sent to the patient in a printed lay language version of the imaging report. The mammogram was read with the assistance of CAD and tomosynthesis. Page 1 of 2 Patient Name:Deysi Bess : 1960 Age: 55 Gender: femaleDate of Service: 10/07/2015 eferring Phy:Sherif Morrow M.D.Account: [id number] Read By: Sandra Mallory M.D. Signed By: Sandra Mallory M.D. on 10/07/2015 at 04:22:47 PM Page 2 of 2 Read By: SANDRA MALLORY M.D. Signed By: SANDRA MALLORY M.D. on 10/07/2015 at 16:22:49 Narrative 10/07/2015 4:23 PM EDT REQUESTING PHYSICIAN: SHERIF MORROW REASON FOR EXAMINATION/PROCEDURE: screen EXAMINATION / PROCEDURE: SCREENING MAMMO DIGITAL W/ CAD Oct 07 2015 15:39 JON BILATERAL SCREENING Oct 07 2015 15:39 HISTORY: Patient is 55 years o ld and is seen for screening mammography. The patient has no personal history of cancer. The patient has no family history of breast cancer. COMPARISON: Comparison is made with prior exams dating back to 2011. MAMMOGRAM TECHNIQUE: The [facility] mammographic views were obtained: bilateral craniocaudal; bilateral mediolateral oblique; and bilateral tomosynthesis images were obtained. Computer assisted detection was used in the interpretation of this study. MAMMOGRAM FINDINGS : There are scattered areas of fibroglandular density. No masses, suspicious microcalcifications or architectural distortion are evident. IMPRESSION: BI-RADS Assessment Category 1: Negative. RECOMMENDATION: Routine screening mammogr am in 1 year. COMMUNICATION: The results and recommendations will be sent to the patient in a printed lay language version of the imaging report. The mammogram was read with the assistance of CAD and tomosynthesis. Read By: SANDRA MALLORY M.D. Signed By: SANDRA MALLORY M.D. on 10/07/2015 at 16:22:49 Verified by: SANDRA MALLORY M.D. on Oct 07 2015 4:22P Transcribed by: [facility] Oct 07 2015 4:22P Dictated by: SANDRA MALLORY M.D. on Oct 07 2015 4:22P Patient Name:Deysi Bess : 1960 Age: 55 Gender: femaleDate of Service: 10/07/2015 eferring Phy:Sherif Morrow M.D.Account: [id number] Sherif Morrow M.D. [facility]. [address] [place] [address] FINAL REPORT PROCEDURE: Tomosynthesis Bilateral Screening - bilateral , Screening Mammogram with CAD - bilateral HISTORY: Patient is 55 years old and is seen for screening mammography. The patient has no personal history of cancer. The patient has no family history of breast cancer. COMPARISON: Comparison is made with prior exams dating back to 2011. MAMMOGRAM TECHNIQUE: The following mammographic views were obtained: bilateral craniocaudal; bilateral mediolateral oblique; and bilateral tomosynthesis images were obtained. Computer assisted detection was used in the interpretation of this study. MAMMOGRAM FINDINGS: There are scattered areas of fibroglandular density. No masses, suspicious microcalcifications or architectural distortion are evident. Procedure Note Provider, MD Luis Alberto - 09/19/2020 REQUESTING PHYSICIAN: SHERIF MORROW REASON FOR EXAMINATION/PROCEDURE: screen EXAMINATION / PROCEDURE: SCREENING MAMMO DIGITAL W/ CAD Oct 07 2015 15:39 JON BILATERAL SCREENING Oct 07 2015 15:39 HISTORY: Patient is 55 years o ld and is seen for screening mammography. The patient has no personal history of cancer. The patient has no family history of breast cancer. COMPARISON: Comparison is made with prior exams dating back to 2011. MAMMOGRAM TECHNIQUE: The f ollowing mammographic views were obtained: bilateral craniocaudal; bilateral mediolateral oblique; and bilateral tomosynthesis images were obtained. Computer assisted detection was used in the interpretation of this study. MAMMOGRAM FINDINGS : There are scattered areas of fibroglandular density. No masses, suspicious microcalcifications or architectural distortion are evident. IMPRESSION: BI-RADS Assessment Category 1: Negative. RECOMMENDATION: Routine screening mammogr am in 1 year. COMMUNICATION: The results and recommendations will be sent to the patient in a printed lay language version of the imaging report. The mammogram was read with the assistance of CAD and tomosynthesis. Read By: SANDRA MALLORY M.D. Signed By: SANDRA MALLORY M.D. on 10/07/2015 at 16:22:49 Verified by: SANDRA MALLORY M.D. on Oct 07 2015 4:22P Transcribed by: [facility] Oct 07 2015 4:22P Dictated by: SANDRA MALLORY M.D. on Oct 07 2015 4:22P Patient Name:Deysi Bess : 1960 Age: 55 Gender: femaleDate of Service:10/07/2015 eferring Phy:Sherif Morrow M.D.Account: [id number] Sherif Morrow M.D. [facility]. [address] [place] [address] FINAL REPORT PROCEDURE: Tomosynthesis Bilateral Screening - bilateral , Screening Mammogram withCAD - bilateral HISTORY: Patient is 55 years old and is seen for screening mammography. Thepatient has no personal history of cancer. The patient has no family history of breast cancer. COMPARISON: Comparison is made with prior exams dating back to 2011. MAMMOGRAM TECHNIQUE: The following mammographic views were obtained: bilateral craniocaudal;bilateral mediolateral oblique; and bilateral tomosynthesis images were obtained. Computer assisted detection was usedin the interpretation of this study. MAMMOGRAM FINDINGS: There are scattered areas of fibroglandular density. No masses, suspicious microcalcifications or architectural distortion areevident. IMPRESSION: BI-RADS Assessment Category 1: Negative. RECOMMENDATION: Routine screening mammogram in 1 year. COMMUNICATION: The results and recommendations will be sent to the patient in a printedlay language version of the imaging report. The mammogram was read with the assistance of CAD and tomosynthesis. Page 1 of 2 Patient Name:Deysi Bess : 1960 Age: 55 Gender: femaleDate of Service:10/07/2015 eferring Phy:Sherif Morrow M.D.Account: [id number] Read By: Sandra Mallory M.D. Signed By: Sandra Mallory M.D. on 10/07/2015 at 04:22:47 PM Page 2 of 2 Read By: SANDRA MALLORY M.D. Signed By: SANDRA MALLORY M.D. on 10/07/2015 at 16:22:49 us Historical Provider IMG BI PROCEDURES Final Resu lt from Last 3 Months or Most Recently Relevant to Health Maintenance Care Teams Balance Sheet Analyst Relationship Specialty Start Date End Date Alycia Delgado, MATHIEU [address] [place] [address] PCP - General 07/15/21
--- OUTSIDE RECORDS SUMMARY | 2025-03-26 13:09 | XMS_ITS | Clinical Summary ---
Author Organization [facility] Address [address], [address] [place] [address] Care Team Providers Care A Operator Name Role Phone Unavailable Primary Care Provider Unavailabl e Allergies No known active allergies Medications SYNTHROID 112 MCG tablet 05/22/2018 Active NAPROXEN 500 MG EC tablet 05/22/2018 Active omeprazole (PRILOSEC) 20 MG delayed release capsule 05/22/2018 Active rosuvastatin (CRESTOR) 20 MG tablet 05/22/2018 Active Social History Tobacco Use Types Packs/Day Years Used Date Smoking Tobacco: Every Day Smokeless Tobacco: Never Comments Unknown Sex and Gender Information Value Date Recorded Sex Assigned at Not on file Legal Sex Female 10:30 AM EST Gender Identity Not on file Sexual Orientation Not on file Last Filed Vital Signs Vital Sign Reading Time Taken Comments Blood Pressure - - Pulse - - Temperature - - Respiratory Rate - - Oxygen Saturation - - Inhaled Oxygen Concentration - - Weight 65.3 kg (144 lb) 06/18/2018 10:15 AM EST Height 162.6 cm (5' 4 ) 06/18/2018 10:15 AM EST Body Mass Index 24.72 06/18/2018 10:15 AM EST Plan of Treatment Not on file Insurance MD [employer]
--- OUTSIDE RECORDS SUMMARY | 2025-03-26 13:09 | XMS_ITS | Data Portability ---
Author Organization [facility] IGNACIA Marcelino AUSTIN CLOSED Address [address] [facility] [address] [facility] [facility] [address] [place] [address] Care Team Providers Care Laborer Sh[place] Name Role Phone MARIBEL LUZ Primary Care Provider [phone] Assessment No assessment recorded. Plan of Treatment Reminders Order Date Submit Date Provider Last Modified By Organization Details Last Modified Time Details Appointments None recorded. Lab culture, anaerobic 2021 022 [email or web address] [facility], [address] [place] [address], [phone], 08:29:20 cell count w/ diff, body fluid [address] [facility], [address] [place] [address], [phone], 08:29:20 culture, bacterial [facility] [address] [place] [address], [phone], 2 10:14:58 Referral None recorded. Procedures None recorded. Surgeries None recorded. Imaging CT, shoulder, w/o contrast 2021 ptabacnic Not available 07:57:59 unlisted imaging order - rf RT shoulder aspiration 2021 ptabacnic Not available 07:58:00 XR, shoulder, 2 or more view 2020 021 [email or web address] Not available 09:38:24 Medication Orders None recorded. Patient TargetsNo targets recorded. Patient InstructionsNo instructions recorded. Reason for Referral None Reported. Results Created Date Observation Date Name Description Value Unit Range Abnormal Flag Note LastModifiedBy Organization Detail LastModifiedTime 04/14/20 22 04/14/2022 FLUID CELL COUNT , STAT fluid cell count, stat see below normal TEST REFER RED TO [facility]. SEE SCANN ED REFER ENCE LAB REPOR T. REPOR T RECEI MILLIE IN THE LABOR ATORY : 04/14 Not Available [facility] [address] [place], [address], 04/14/2022 15:54:56 04/14/20 22 04/14/2022 CULTU TEMO COURTNEY NE results Sourc e: SYNOV Colle cted: 04/14 08:46 Site: RIGHT SHOUL ETHAN Recei millie : 04/14 09:49 GRAM STAIN FINAL 04/17 15:09 04/17 Many Red Blood Cells . Occas ional White Blood Cells . No organ isms seen. CULTTEMO ANDERSON FINAL 04/19 13:42 04/17 No growt h day 3. 04/18 No growt h day 4. 04/19 No growt h day 5. Not Available [facility] [address] [place], [address], 04/19/2022 13:42:49 04/14/20 22 04/29/2022 ANAER OBIC CULTU RE anaerobe result SEE BELOW normal CULTU RE, ANAER OBIC BACTE WAI W/GRA M STAIN Micro Numbe r: [id number] Test Statu s: Final Speci men Sourc e: Synov ial fluid Speci men Quali ty: Adequ ate Gram Stain : Few Polym orpho nucle ar leuko cytes No organ isms seen Resul t: No anaer obes isola martha. TEST PERFO RMED AT: [facility] [address] [place] [address] SATYA BABB M.D. Not Available [facility] [address] [facility], [place], [address], 05/01/2022 08:25:53 10/16/19 21 10/15/2020 XR, shoul ethan, 2 or more view [facility] [address] [place] [address] Darron bateman Name: MELANI bateman : 1959 Darron bateman Orderi ng Provid er: DELORES CUNHA EXAM DATE: 2020 EXAM: XR RT SHOULD ER COMPLE TE RADIOG RAPHIC VIEWS: 3 view right should er COMPAR MARÍA: 020 HISTOR Y: Pain. Surger y follow -up para findin gs: Darron bateman has a right should er revers e total arthro plasty . No compli cation is noted. No eviden ce of hardwa re loosen ing is noted. DJD of the AC joint again noted. Visual ized right lung clear IMPRES BISHOP: Uncomp licate d appear ing right should er revers e total arthro plasty Interp reted By: David Laughlin MD Electr onical ly Signed By: David Laughlin MD on 10/16/19 9:29 AM ddome [facility] [place] [address] , [place], [address], 10/15/2020 10:38:22 07/04/19 22 07/04/2021 XR, shoul ethan, 2 or more view [facility] [address] [place] [address] Darron bateman Name: MELANI bateman : 1959 Darron bateman Orderi ng Provid er: DELORES Bocanegra DOMJanice EXAM DATE: 2021 EXAM: XR RT SHOULD ER COMPLE TE RADIOG RAPHIC VIEWS: 3 COMPAR MARÍA: 10/16/19 21 HISTOR Y: Follow -up of prior surger y. FINDIN GS: Again seen is a right should er revers e total arthro plasty . There is no eviden ce of loosen ing or compli cation . No fractu re is identi fied. There are mild degene rative change s at the acromi oclavi cular joint. IMPRES BISHOP: 1. There is a right should er revers e total arthro plasty in place withou t eviden ce of compli cation . Interp reted By: Pavel garrison MD Electr onical ly Signed By: Pavel garrison MD on 11:38 AM ddome [facility] [address] , [place], [address], 07/04/2021 11:48:15 03/31/20 22 03/31/2022 XR, leigh long, 2 or more view [facility] [address] [place] [address] Patiholden bateman Name: MELANI bateman : 1959 Patiholden bateman Orderi ng Provid er: DELORES CUNHA EXAM DATE: 2021 EXAM: XR RT SHOULD ER COMPLE TE RADIOG RAPHIC VIEWS: 3 COMPAR MARÍA: HISTOR Y: Follow -up of prior surger katie PEREZ GS: Again seen is a right should er revers e total arthro plasty . There is no eviden ce of loosen ing or compli cation . No fractu re is identi fied. There are mild degene rative change s at the acromi oclavi cular joint. IMPRES BISHOP: 1. There is a right should er revers e total arthro plasty in place withou t eviden ce of compli cation . Interp reted By: Pavel garrison MD Electr onical ly Signed By: Pavel garrison MD on 2021 10:16 AM ddome [facility] [address] , [place], [address], 03/31/2022 10:34:20 04/14/20 22 04/14/2022 CT, shoul ethan, w/o contr ast [address] [place] [address] Patiholden t Name: MELANI bateman : 1959 Patiholden bateman Orderi ng Provid er: DELORES SMITHJanice EXAM DATE: 2021 EXAM: CT RT SHOULD ER W/O CONTRA ST HISTOR Y: 62-yea r-old female with right should er pain and instab ility. COMPAR MARÍA: Radiog raph dated [address] scan dated 020 TECHNI QUE: 1 mm axial direct images were obtain ed throug h the right should er, and comput er genera martha obliqu e solis l, obliqu e sagitt al, and reform atted axial sequen won were genera martha from the source images . FINDIN GS: There is a revers e right should er arthro plasty in place. There is no judy loosen ing of the arthro plasty . No adjace nt fractu re is identi fied. There are mild degene rative change s at the acromi oclavi cular joint. There are ossifi c fragme nts along the anteri or aspect of the acromi on proces s. These may repres ent degene rative change s or an old fractu re. These were presen t on the prior CT scan. There is atroph y of the supras pinatu s and infras pinatu s muscle s with full-t hickne ss tears of these tendon s. The subsca pulari s tendon is not visual ized. No soft tissue mass is identi fied. The visual ized right ribs and right lung appear normal . IMPRES BISHOP: 1. There is a revers e right should er arthro plasty in place. There is no juyd loosen ing of the arthro plasty . 2. There is a full-t hickne ss rotato r cuff tear. Interp reted By: Pavel garrison MD Electr onical ly Signed By: Pavel garrison MD on 022 8:59 AM ddome [facility] [address] [place], [address], 04/14/2022 09:05:38 04/14/20 22 04/14/2022 rf RT shoul ethan aspir ation [address] [place] [address] Patiholden t Name: MELANI bateman : 1959 Patien t Orderi ng Provid er: DELORES CUNHA EXAM DATE: 2021 EXAM: RF RT SHOULD ER ASPIRA TION HISTOR Y: Right should er pain TECHNI QUE: The patien t was positi oned supine on the fluoro scopy table and an entry site was locali zed under fluoro scopic guidan ce. The skin was preppe d and draped in the usual steril e fashio n. 1% Lidoca ine was used to anesth etize the skin and subcut aneous tissue s. A 22-gau ge 1.5 inch needle was introd uced into the glenoh umeral joint and aspira tion was attemp martha. Subseq uently , approx imatel y 3 mL iodina martha contra st was introd uced into the joint. The needle was remove d withou t compli cation . 3 mL of a 50 mL vial of Omnipa que 240 ([facility] [address]-3 0) was inject ed into the patien t.The remain ing 47 mL was wasted and discar ded. IMPRES BISHOP: 1. The patien t is status post attemp martha aspira tion of the right should er arthro plasty . 2. Approx imatel y 5 cc sangui nous fluid was obtain ed from the should er. Interp reted By: Pavel garrison MD Electr onical ly Signed By: Pavel garrison MD on 022 9:03 AM ddome [facility] [address] [place], [address], 04/14/2022 09:16:17 Result Notes Documentation Provider Name and Address Organization Details Recorded Time Xr, Shoulder, 2 Or More View : [facility] [place] [address] [place] [address] Patient Name: MELANI PERRY Patient : 1960 Patient Ordering Provider: DELORES CUNHA EXAM DATE: 10/15/2020 EXAM: XR RT SHOULDER COMPLETE RADIOGRAPHIC VIEWS: 3 view right shoulder COMPARISON: 01/05/2020 HISTORY: Pain. Surgery follow-up para findings: Patient has a right shoulder reverse total arthroplasty. No complication is noted. No evidence of hardware loosening is noted. DJD of the AC joint again noted. Visualized right lung clear IMPRESSION: Uncomplicated appearing right shoulder reverse total arthroplasty Interpreted By: David Laughlin MD RES CUNHA MD [address] [place] [address], [phone], [facility] 10/15/2020 10:38:22 Xr, Shoulder, 2 Or More View : [facility] [address] [place] [address] Patient Name: MELANI PERRY Patient : 1960 Patient Ordering Provider: DELORES CUNHA EXAM DATE: 07/04/2021 EXAM: XR RT SHOULDER COMPLETE RADIOGRAPHIC VIEWS: 3 COMPARISON: 10/15/2020 HISTORY: Follow-up of prior surgery. FINDINGS: Again seen is a right shoulder reverse total arthroplasty. There is no evidence of loosening or complication. No fracture is identified. There are mild degenerative changes at the acromioclavicular joint. IMPRESSION: 1. There is a right shoulder reverse total arthroplasty in place without evidence of complication. Interpreted By: Luis Alberto Duran MD RES CUNHA MD [address] [place] [address], [phone], [facility] 07/04/2021 11:48:15 Xr, Shoulder, 2 Or More View : [facility] [address] [place] [address] Patient Name: MELANI PERRY Patient : 1960 Patient Ordering Provider: DELORES CUNHA EXAM DATE: 03/31/2022 EXAM: XR RT SHOULDER COMPLETE RADIOGRAPHIC VIEWS: 3 COMPARISON: 07/04/2021 HISTORY: Follow-up of prior surgery. FINDINGS: Again seen is a right shoulder reverse total arthroplasty. There is no evidence of loosening or complication. No fracture is identified. There are mild degenerative changes at the acromioclavicular joint. IMPRESSION: 1. There is a right shoulder reverse total arthroplasty in place without evidence of complication. Interpreted By: Luis Alberto Duran MD RES CUNHA MD [address] [place] [address], [phone] 03/31/2022 10:34:20 Ct, Shoulder, W/o Contrast : [address] [address] Patient Name: MELANI PERRY Patient : 1960 Patient Ordering Provider: DELORES CUNHA EXAM DATE: 04/14/2022 EXAM: CT RT SHOULDER W/O CONTRAST HISTORY: 62-year-old female with right shoulder pain and instability. COMPARISON: Radiograph dated 03/31/[address] scan dated 08/01/2019 TECHNIQUE: 1 mm axial direct images were obtained through the right shoulder, and computer generated oblique coronal, oblique sagittal, and reformatted axial sequences were generated from the source images. FINDINGS: There is a reverse right shoulder arthroplasty in place. There is no judy loosening of the arthroplasty. No adjacent fracture is identified. There are mild degenerative changes at the acromioclavicular joint. There are ossific fragments along the anterior aspect of the acromion process. These may represent degenerative changes or an old fracture. These were present on the prior CT scan. There is atrophy of the supraspinatus and infraspinatus muscles with full-thickness tears of these tendons. The subscapularis tendon is not visualized. No soft tissue mass is identified. The visualized right ribs and right lung appear normal. IMPRESSION: 1. There is a reverse right shoulder arthroplasty in place. There is no judy loosening of the arthroplasty. 2. There is a full-thickness rotator cuff tear. 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 Procedures Surgical History Date Name Laterality Status Provider Name and Address Organization Details Recorded Time 0 Orthopedic Surgery completed Jerrell Jose [facility] 05/03/2020 08:58:28 8 Op Note completed JUAREZ HAMPTON MD [address] [place] [address], [address], [facility] 02/11/2018 12:33:31 Imaging Results None recorded. Procedure Notes None recorded. Medical Equipment None Reported. Allergies No known drug allergies Medications Name Sig Start Date Stop Date Status Note LastModified by Organization Details LastModified Time benzoyl peroxide 5 % topical cleanser WASH THE AFFECTED AREA(S) BY TOPICAL ROUTE 2 TIMES PER DAY 11/23 completed Not Available Not Available Not Available [place] 7.5 mg-325 mg tablet Every six to eight hours 11/07 completed Duration : 21 days;Abhishek quency: q6-8h;Me dication Descript ion: acetamin ophen-hy drocodon e; Dosage:1 ; Route:or al; refills: 0; Quantity :60 tablet Not Available Not Available Not Available Percocet 5 mg-325 mg tablet 1-2 PO Q-6 hours PRN Post-Op Pain 05/28 completed Not Available Not Available Not Available Crestor 20 mg tablet Take 1 tablet every day by oral route. active Not Available Not Available No t Available levothyro xine 2018 active Not Available Not Available Not Avai lable Aspir-81 active Not Available Not Avai lable Not Available naproxen 2018 active Medicati on Descript ion: naproxen ; refills: 0 Not Available Not Available Not Available Plavix 2018 active Not Available Not Available Not Avai lable Prilosec active Medicati on Descript ion: omeprazo le; Route:or al; refills: 0 Not Available Not Available Not Available Vitals Date Recorded Body height Pain severity - 0-10 verbal numeric rating [Score] - Reported Body mass index (BMI) Body weight Provider Name and Address Organization Details Last Updated DateTime 07/04/2021 162.56 cm 1 22.3 kg/m2 13180.01 g Cruzito Diane [facility] 07/04/2021 11:22:21 Date Recorded Body height Body mass index (BMI) Body weight Provider Name and Address Organization Details Last Updated DateTime 10/15/2020 162.56 cm 22.3 kg/m2 26631.01 g Bhavna Heredia [facility] 10/15/2020 08:13:29 Date Recorded Body height Body mass index (BMI) Body weight Pain severity - 0-10 verbal numeric rating [Score] - Reported Provider Name and Address Organization Details Last Updated DateTime 03/31/2022 162.56 cm 22.3 kg/m2 30285.01 g [facility]/31[facility] 10:03:36 Date Recorded Body height Body mass index (BMI) Body weight Pain severity - 0-10 verbal numeric rating [Score] - Reported Provider Name and Address Organization Details Last Updated DateTime 04/14/2022 162.56 cm 22.3 kg/m2 40468.01 g 3 [facility] 04/14/2022 10:05:40 Date Recorded Body height Body mass index (BMI) Body weight Provider Name and Address Organization Details Last Updated DateTime 05/03/2020 162.56 cm 22.3 kg/m2 80544.01 g Jerrell Garcia [facility] 05/03/2020 08:57:09 Social History Question Answer Notes LastModified by Organizat ion Details LastModified Time Tobacco Smoking Status Current Every Day Smoker Misti SUSAN Moore [facility] 11/07/2017 10:08:14 What Was The Date Of Your Most Recent Tobacco Screening? 07/26/2018 Information n ot available 07/01/2019 Sex: Unknown Functional Status None recorded. Mental Status None recorded. Family History Nothing Reported. Medical History Condition Response Diabetes N Bleeding Disorder N Thyroid Disease Heart Conditions N Blood Clot N Tuberculosis N Hernia N Migraines N COPD N Asthma N Blood Thinners Sleep Apnea N High Cholesterol Anesthesia Complications N Liver Disease N Heart Attack (OR) N Kidney Disease N Gynecological HistoryNo gynecological history recorded. Obstetrics History GPAL:G 0 P 0 0 0 0 Past Encounters Encounter ID Performer Location Encounter Start Date Encounter Closed Date Diagnosis/Indication Diagnosis SNOMED-CT Code Diagnosis ICD10 Code Diagnosis IMO Codes Diagnosis Note [id number] JUAREZ HAMPTON MD [facility] [address] [place] [address] 11/07/2017 09:28:16 11/07/2017 10:31:57 Full thickness rotator cuff tear 550479520 M75.121 clinical problems with Hx weakness anf pain and previous large failed rCR MRI scan to assess re-tear, atrophy and options [id number] JUAREZ HAMPTON MD [facility] [address] [place] [address] 01/09/2018 07:51:57 01/09/2018 08:57:56 Full thickness rotator cuff tear 867455543 M75.121 clinical problems with Hx weakness anf pain and previous large failed rCR failed 2 months conservati ve care MRI scan to assess re-tear, atrophy and options [id number] JUAREZ HAMPTON MD [facility] [address] [place] [address] 01/29/2018 10:16:01 01/30/2018 07:43:51 Full thickness rotator cuff tear 442289203 M75.121 clinical problems with Hx weakness anf pain and previous large failed rCR failed 2 months conservati ve care MRI shws Infra fixable but Supra likely best Rx with SCR poor candiate striaght RCR and RevTSR too complciate d at young age and laboring [id number] JUAREZ HAMPTON MD SURGERY SCHEDULE [address] [place] [address] 02/11/2018 06:42:32 02/11/2018 06:44:26 [id number] MATTHEW AGARWAL PA-C [facility] [address] [place] [address] 02/26/2018 13:17:07 02/26/2018 16:20:33 Postoperative care 693945578 Z48.89 Doing well 2 wks s/p Right shoulder arthroscop y with Arthroscop ic rotator cuff repair primarily of the infraspina tus, Margin convergenc e and partial repair of the supraspina tus, Extensive debridemen t of the superior and posterior labrum removal of multiple loose sutures and Revision subacromia l decompress ion HEP Demonstrat ed, will hold on PT until next visit Counselled on precaution s at length RTO as scheduled or sooner if needed, advised to call office with any questions/ concerns. 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 Hampton 02/11/18 Making progress with motion with therapy, I recommend continuing PT and begin gradual strengthen ing as tolerated. Emphasized importance of HEP. Counsellin g provided at length. 6-8 wk recheck. RTO as scheduled or sooner if needed, advised to call office with any questions/ concerns. [id number] MATTHEW AGARWAL PA-C [facility] [address] [address] 07/26/2018 12:41:11 07/26/2018 13:38:44 Postoperative care 704848813 Z48.89 s/p Right shoulder arthroscop y with Arthroscop ic rotator cuff repair primarily of the infraspina tus, Margin convergenc e and partial repair of the supraspina tus, Extensive debridemen t of the superior and posterior labrum removal of multiple loose sutures and Revision subacromia l decompress ion by Dr. Hampton 02/11/[address] Hampton last month who's assessment was that of functional ly deficient supraspina tus tendon after a third repair, however, good functional anterior and posterior rotator cuff and no significan t arthosis. Ms. Perry was continuing to make progress with therapy, however, she states her insurance has since denied continued treatment. Emphasized importance of HEP. She is concerned about returning to work. 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 At this point she will return to office on an as needed basis. Counsellin g provided at length. RTO as needed, advised to call office with any questions/ concerns. [id number] KIESHA SARMIENTO MD [facility] [address] [place] [address] 06/23/2019 14:01:00 06/23/2019 15:44:14 Pain of right shoulder joint 1837699770 5404507 M25.511 Full thick ness rotator cuff tear 955485360 M75.243 [id number] DELORES CUNHA MD [facility] [address] [place] [address] 07/02/2019 13:51:21 07/02/2019 16:01:23 Pain of right shoulder joint 4587559151 9251214 M25.511 Rotator cu ff tear arthropathy 583789331 M19.111 Ms Perry has an irreparabl e rotator cuff tear of the right shoulder. She likely will need reverse TSA for management of her pain and functional limitation s. I recommend CT of the shoulder for preop planning of the reverse TSA. [id number] DELORES CUNHA MD [facility] [address] [address] 07/14/2019 14:09:03 07/14/2019 14:52:36 Rotator cuff tear arthropathy 933777685 M19.111 Ms Perry has an irreparabl e rotator cuff tear of the right shoulder. She likely will need reverse TSA for management of her pain and functional limitation s. I reviewed the CT of the shoulder for preop planning of the reverse TSA. I Discussed risks of right shoulder reverese TSA to include: Infection Stiffness Nerve or blood vessel injury Failure of repair Stephanie-opera tive problems (medical/a nesthesia DVT, PE, Need for blood products Possible need for additional surgeries Patient is considerin g surgery. If patient elects to schedule surgery, controlled medication will be prescribed for post-op pain control. The risks and benefits of this type of medication were also discussed. After thorough discussion risks, benefits and alternativ e treatments , patient requests to proceed with surgery as outlined above. [id number] DELORES CUNHA MD SURGERY SCHEDULE [address] [place] [address] 10/20/2019 09:01:28 10/21/2019 09:34:40 [id number] DELORES CUNHA MD [facility] [address] [place] [place] [address] 10/27/2019 11:01:14 10/27/2019 11:49:14 History of reverse prosthetic total arthroplasty of right shoulder [id number] 6098935 Z96.611 Ms Perry is doing well status post reverse TSA. I recommend continued protection of the repair and formal physical therapy. [id number] DELORES CUNHA MD [facility] [address] [place] [address] 11/24/2019 13:23:57 11/24/2019 13:47:28 History of reverse prosthetic total arthroplasty of right shoulder [id number] Z96.611 Ms Perry is doing well status post reverse TSA. I recommend continued protection of the repair and continued formal physical therapy. [id number] DELORES CUNHA MD [facility] [address] [address] 01/05/2020 14:24:06 01/05/2020 15:23:14 History of reverse prosthetic total arthroplasty of right shoulder [id number] Z96.611 Ms Perry is doing well status post reverse TSA. I recommend continued protection of the repair and continued formal physical therapy. [id number] DELORES CUNHA MD [facility] [address] [place] [address] 02/02/2020 08:47:21 02/02/2020 09:11:41 History of reverse prosthetic total arthroplasty of right shoulder [id number] Z96.611 Ms Perry is doing well status post reverse TSA. I recommend continued protection of the repair and continued formal physical therapy. I recommend work restrictio ns no use above shoulder height and no push pull lift carry greater than 10#. [id number] MD [facility] [address] [address] 05/03/2020 08:54:50 05/03/2020 09:12:28 History of reverse prosthetic total arthroplasty of right shoulder [id number] Z96.611 Ms Perry is doing well status post reverse TSA. I recommend continued protection of the repair and continued formal physical therapy. I recommend work restrictio ns no use above shoulder height and no push pull lift carry greater than 10#. [id number] DELORES CUNHA MD [facility] [address] [place] [address] 10/15/2020 08:07:55 10/15/2020 09:38:24 History of reverse prosthetic total arthroplasty of right shoulder [id number] Z96.611 Ms Perry is doing well status post reverse TSA. I recommend continued protection of the repair and continued formal physical therapy. I recommend work restrictio ns no use above shoulder height and no push pull lift carry greater than 10#. [id number] DELORES CUNHA MD [facility] [address] [place] [address] 07/04/2021 10:15:49 07/04/2021 11:31:36 History of reverse prosthetic total arthroplasty of right shoulder [id number] Z96.611 Ms Perry is doing well status post reverse TSA. I recommend continued protection of the repair and continued HEP. I recommend work restrictio ns no use above shoulder height and no push pull lift carry greater than 10#. [id number] DELORES CUNHA MD [facility] [address] [place] [address] 03/31/2022 09:50:17 03/31/2022 10:17:15 History of reverse prosthetic total arthroplasty of right shoulder [id number] Z96.611 Ms Perry has had sudden onset of shoulder instabilit y symptoms. I recommend continued activity restrictio ns and CT and aspiration for culture. [id number] DELORES CUNHA MD [facility] [address] [place] [address] 04/14/2022 09:59:32 04/14/2022 11:29:03 History of reverse prosthetic total arthroplasty of right shoulder [id number] Z96.611 Ms Perry had sudden onset of shoulder instabilit y symptoms. I recommende d continued activity restrictio ns and CT and aspiration for culture. There is no obvious loosening of the implants or signs of instabilit y. We will await the culture results. Health Concerns Section Related Observation LastModified by Organization Detai ls LastModified Time None Recorded Concern Status LastModified by Organization Details LastModified Time None Recorded Advance Directives Directive None Recorded Payers Insurance Date Sequence Insurance Name Policy Number Policy Fierro Covered Member ID Fierro Member ID Guarantor Name 05/02/2022 1 [employer] [id number] Melani Perry [id number] Melani Perry 09/15/2020 PAYMENT PLAN Melani Perry 10/24/2019 2 *SELF PAY* [employer] Notes Date Note Type Note Provider Name and Address Organization Details Recorded Time 05/03/2020 text/html Ms Perry is 6 months status post 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 She has had good pain relief and function of the shoulder with minimal residual complaints. She denies significant pain at night or need for pain medications. She denies fevers, chills or sweats. She denies locking, catching, giving away, or significant swelling of the shoulder. 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 She has had good pain relief and function of the shoulder with minimal residual complaints. She denies significant pain at night or need for pain medications. She denies fevers, chills or sweats. She denies locking, catching, giving away, or significant swelling of the shoulder. 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 She has had good pain relief and function of the shoulder with minimal residual complaints. She had a recent strain of the shoudler with increased discomfort of the shoulder but denies significant pain at night or need for pain medications. She denies fevers, chills or sweats. She denies locking, catching, giving away, or significant swelling of the shoulder. DELORES CUNHA MD [address] [place] [address] [place], [phone], [facility] 07/07/2021 12:02:22 03/31/2022 text/html Ms Perry is status post reverse TSA right shoulder. She was doing well with no pain or limitation of use of the right arm until she felt the shoulder slip out of place and back in over the weekend. She has no prior history of shoulder instability. She denies paresthesia or radicular symptoms. She denies fevers, chills or sweats. She denies any pain functional limitations or recurrent instability since the one episode over the weekend. DELORES CUNHA MD [address] [place] [address] [place], [phone], [facility] 03/31/2022 10:20:58 04/14/2022 text/html Ms Perry is status post reverse TSA right shoulder. She was doing well with no pain or limitation of use of the right arm until she felt the shoulder slip out of place and back in over the weekend. She has had no further episodes of shoulder instability. She denies paresthesia or radicular symptoms. She denies fevers, chills or sweats. She denies any pain functional limitations or recurrent instability since the single episode. She is sore today following aspiration of the joint. [facility] [place], [phone], [facility] 04/14/2022 10:29:46 OBGyn Episode No OBEpisode recorded.
== END 2025-03-26 23:59 | disposition home or self-care (01) ==
LOC: RAD 13:06
PROVIDERS: PCP Nurse Practitioner; Visit Provider Nurse Practitioner
DX: Z12.31 Encounter for screening mammogram for malignant neoplasm of breast (principal); R92.323 Mammographic fibroglandular density, bilateral breasts
CPT/HCPCS: 77063; 77067